=== PATIENT | male | born 1945 | race Caucasian/White ===

== ENCOUNTER 2017-11-28 09:06 | Day surgery (SDC) | payer MEDICARE ==
[~2017-11-28 09:06] MED LIST: BUPIVACAINE (PF) 0.5% 4.5 ML, HYALURONIDASE, HUMAN RECOMB 150 UNIT, LIDOCAINE 2% (PF) 9... IO ONE; LACTATED RINGERS 1,000 ML IV SCH; MOXIFLOXACIN HCL 0.5% DROPS 3 ML BTL OP ONE; TETRACAINE 0.5% OPHTH (PF) DROPS 4 ML BTL OP ONE; TIMOLOL 0.5% OPHTH DROPS 5 ML BTL OP ONE
[2017-11-28 10:40] VITALS: RESP 16; TEMP 97.9
[2017-11-28] MEDS: CYCLOPENTOLATE 1% OPHTH SOLN 2 ML BTL OP ONE ×2 (10:40→10:43)
[2017-11-28] MEDS ORDERED: LIDOCAINE 1% 20 ML VIAL (10MG/ML) FOR IV START INTRADERMA ONE (10:47)
[2017-11-28] MEDS: PHENYLEPHRINE 2.5% OPHTH DRP 2ML OP NR ×3 (10:49→10:55)
[2017-11-28] MEDS ORDERED: BALANCED SALT IRRIG SOLN COMB2 15 ML IRRIG.SOLN INTRAOCULA ONE ×2 (11:42)
[2017-11-28] MEDS ORDERED: PROPOFOL 10 MG/ML 20 ML VIAL IV ONE (11:42)
[2017-11-28] MEDS ORDERED: BUPIVACAINE (PF) 0.5% 30 ML VIAL ONE (11:48)
[2017-11-28] MEDS ORDERED: EPINEPHrine (PF) 0.3 ML in BALANCED SALT IRRIG SOLN COMB2 500 ML IRRIGATION ONE (12:02)
[2017-11-28] MEDS ORDERED: ACETYLCHOLINE CHLORIDE 10 MG/ML 2 ML KIT INTRAOCULA ONE ×2 (13:02)
[2017-11-28] MEDS ORDERED: FLUORESCEIN STRIPS 1 MG STRIP LEFT EYE ONE (13:04)
--- NOTE | 2017-11-28 13:22 | P.OP ---
Date of Procedure: 11/28/17 Preoperative Diagnosis: IOL dislocation Postoperative Diagnosis: same Procedure(s) Performed: Reyna Sutured IOL Implants: none Anesthesia: regional Surgeon: Ayad Gordillo Estimated Blood Loss (ml): 2 Condition: stable Disposition: same day Indications for Procedure: blurry unstable vision Operative Findings: No complications
[2017-11-28 13:47] VITALS: BP 145/82; PULSE 70
--- NOTE | 2017-11-28 19:35 | OP ---
OPERATIVE REPORT DATE OF SURGERY: 11/28/2017 PREOPERATIVE DIAGNOSIS:: Repositioning of intraocular lens in the left eye. POSTOPERATIVE DIAGNOSIS:: Repositioning of intraocular lens in the left eye. OPERATION:: ESTIMATED BLOOD LOSS:: Less than 5 mL. SPECIMEN TAKEN:: None. SURGEON: Dr. Ayad Gordillo. ANESTHESIA: Regional with retrobulbar. NARRATIVE:: After obtaining the appropriate consent, the patient was brought to the operating room. There, he was placed under cardiac monitoring and induced with propofol for the retrobulbar injection. The retrobulbar injection consisted of 0.5% Marcaine, 1% lidocaine without epinephrine and 150 units of Wydase injected into the retrobulbar space using a 25-gauge Johns needle. A Honan balloon was placed on the eye for approximately 5 minutes. After allowing for sufficient time for regional anesthesia, the patient was then prepped and draped in the usual sterile manner. He was approached from his left temporal side. Three paracenteses were performed. Examination of the loose intra-ocular lens identified the haptic to be approximately at 10 o'clock, 4 o'clock and 2 partial thickness scleral tunnels in those particular positions as per A Reyna-type procedure were created. Additionally, the 3 paracenteses were one at the 10 o'clock and at the 4 o'clock position slightly anterior to the scleral tunnels and an additional paracentesis, the 3rd paracentesis, was performed at 90 degrees away at the 1:30 position. 9-0 Prolene was used to capture the haptic at the 10 o'clock position, first supporting the posterior aspect of the haptic followed by an additional pass with the 9-0 Prolene suture above the haptic. Both needles were passed posterior to the ciliary body and directly through the scleral tissue. After drawing the suture tight and removing the long needles at the end of the suture, a Sinskey or Kuglen hook was used to retrieve the sutures from the scleral pocket. Using standard tying instruments, multiple 3111 ties were tied to secure the Prolene suture within the scleral tunnel. The excess suture was trimmed and retracted nicely within that area. Similarly, needles were passed across the anterior chamber, again capturing the inferotemporal haptic first beneath the haptic and then over the top of the haptic, drawing the inferotemporal haptic tight against the sclera posterior to the ciliary body and in a similar fashion, needles were removed and the suture was retrieved from the scleral pocket with Kuglen or Sinskey hooks. The suture was knotted in a similar 3111 fashion and the excess suture was trimmed and retracted within the pocket. Some gentle adjustment of the intra-ocular lens to better center it within the pupil of the eye was performed using a Sinskey hook. The eye was brought to normal intraocular pressure through the paracentesis port with a balanced salt solution and Miochol was used to bring about pupillary miosis to ensure proper water-tight seal. All 3 paracenteses were closed with ReSure and the scleral pocket, which had been created at the 10 o'clock position, appeared as if it was gaping a bit and was closed with a single 10-0 nylon suture in an X fashion. At the end of the case, 2 drops of 0.5% timolol followed by 2 drops of moxifloxacin were used and the eye was lightly patched and shielded in the usual manner. There were no complications from the procedure. He tolerated the procedure well, was returned to outpatient recovery in good condition. MMODL / IJN: [id number] /
== END 2017-11-28 14:00 | disposition home or self-care (01) ==
LOC: OR 09:06
PROVIDERS: ATTEND Ophthalmology
DX: T85.22XA Displacement of intraocular lens, initial encounter (principal); H53.2 Diplopia; H53.021 Refractive amblyopia, right eye; K21.9 Gastro-esophageal reflux disease without esophagitis; Z79.899 Other long term (current) drug therapy
CPT/HCPCS: 66682; J3470; J2001; J0171; J2704

== ENCOUNTER 2019-06-17 10:40 | Inpatient (IN) | payer MEDICARE ==
[2019-06-17] MEDS ORDERED: ASPIRIN 81 MG PO STA (10:57)
[2019-06-17] MEDS ORDERED: NITROGLYCERIN SL TABS 0.4 MG TAB SUBLINGUAL STA ×3 (10:57)
--- NOTE | 2019-06-17 11:01 | ED ---
General Adult HPI - General Chief complaint: Chest Pain Stated complaint: chest pain Time Seen by Provider: 06/17/19 10:50 Source: patient, RN notes reviewed Mode of arrival: wheelchair Limitations: no limitations - History of Present Illness Initial comments: Patient is a pleasant 74-year-old male presenting to the emergency Department with chest discomfort. Onset of symptoms was 5 or 6 days ago. Discomfort did start in his abdomen however now is in his chest. Discomfort did feel like indigestion however now feels more sharp. No radiation. Discomfort is lower sternal region. No associated dyspnea or diaphoresis. Patient has been nauseated and does vomit a couple of times a day, usually with eating. Patient has had decreased appetite and decreased oral intake. - Related Data Home Medications Medication Instructions Recorded Confirmed Ranitidine HCl [Zantac] 150 mg PO QAM 07/24/16 06/17/19 Allergies Allergy/AdvReac Type Severity Reaction Status Date / Time venom-honey bee Allergy Swelling Verified 06/17/19 10:50 [bee venom (honey bee)] Review of Systems ROS Statement: Those systems with pertinent positive or pertinent negative responses have been documented in the HPI. ROS Other: All systems not noted in ROS Statement are negative. Constitutional: Denies: fever Eyes: Denies: eye pain ENT: Denies: ear pain Respiratory: Denies: cough, dyspnea Cardiovascular: Reports: chest pain Endocrine: Denies: fatigue Gastrointestinal: Reports: as per HPI, nausea, vomiting Genitourinary: Denies: dysuria Musculoskeletal: Denies: back pain Skin: Denies: rash Neurological: Denies: weakness Past Medical History Past Medical History: GERD/Reflux History of Any Multi-Drug Resistant Organisms: None Reported Past Surgical History: Appendectomy, Hernia Repair Additional Past Surgical History / Comment(s): LEFT CATARACT/LENS SURGERY. RIGHT CATARACT AND LENS. Past Anesthesia/Blood Transfusion Reactions: No Reported Reaction Past Psychological History: No Psychological Hx Reported Smoking Status: Never smoker Past Alcohol Use History: Occasional Past Drug Use History: None Reported - Past Family History Brother(s) Family Medical History: Cancer Additional Family Medical History / Comment(s): KIDNEY AND BRAIN CANCER General Exam Limitations: no limitations General appearance: alert, in no apparent distress Head exam: Present: atraumatic Eye exam: Present: normal appearance Neck exam: Present: normal inspection Respiratory exam: Present: normal lung sounds bilaterally. Absent: chest wall tenderness Cardiovascular Exam: Present: regular rate, normal rhythm Expanded Peripheral pulses: 2+: Radial (R), Radial (L), Dorsalis Pedis (R), Dorsalis Pedis (L) GI/Abdominal exam: Present: soft, tenderness (Mild epigastric tenderness to palpation). Absent: distended, guarding, rebound, rigid, pulsatile mass Extremities exam: Present: normal inspection. Absent: pedal edema, calf tenderness Neurological exam: Present: alert Psychiatric exam: Present: normal affect, normal mood Skin exam: Present: normal color Course Vital Signs 06/17/19 06/17/19 10:42 11:08 Temperature 97.8 F Pulse Rate 90 89 Respiratory 18 16 Rate Blood Pressure 170/100 163/94 O2 Sat by Pulse 99 98 Oximetry EKG Findings - EKG Comments: EKG Findings:: Normal sinus rhythm at 80. MT 152. QRS 84. QT 338. QTC 39. Normal axis. Normal QRS. No acute ST change. Medical Decision Making - Medical Decision Making Patient reevaluated and unchanged despite nitroglycerin and Pepcid. Patient updated on results and plan. Dr. Noonan has been paged for admission for hospital call. - Lab Data Result diagrams: 06/17/19 11:00 06/17/19 11:00 Lab Results 06/17/19 06/17/19 06/17/19 Range/Units 11:00 11:00 11:00 WBC 13.6 H (3.8-10.6) k/uL RBC 5.81 (4.30-5.90) m/uL Hgb 16.4 (13.0-17.5) gm/dL Hct 47.7 (39.0-53.0) % MCV 82.2 (80.0-100.0) fL MCH 28.3 (25.0-35.0) pg MCHC 34.4 (31.0-37.0) g/dL RDW 15.1 (11.5-15.5) % Plt Count 262 (150-450) k/uL Neutrophils % 78 % Lymphocytes % 12 % Monocytes % 7 % Eosinophils % 1 % Basophils % 1 % Neutrophils # 10.6 H (1.3-7.7) k/uL Lymphocytes # 1.7 (1.0-4.8) k/uL Monocytes # 0.9 (0-1.0) k/uL Eosinophils # 0.1 (0-0.7) k/uL Basophils # 0.1 (0-0.2) k/uL PT 9.6 (9.0-12.0) sec INR 0.9 (<1.2) APTT 23.0 (22.0-30.0) sec Sodium 136 L (137-145) mmol/L Potassium 4.8 (3.5-5.1) mmol/L Chloride 96 L (98-107) mmol/L Carbon Dioxide 30 (22-30) mmol/L Anion Gap 10 mmol/L BUN 20 (9-20) mg/dL Creatinine 0.92 (0.66-1.25) mg/dL Est GFR (CKD-EPI)AfAm >90 (>60 ml/min/1.73 sqM) Est GFR (CKD-EPI)NonAf 82 (>60 ml/min/1.73 sqM) Glucose 116 H (74-99) mg/dL Calcium 10.7 H (8.4-10.2) mg/dL Magnesium 1.9 (1.6-2.3) mg/dL Total Bilirubin 0.4 (0.2-1.3) mg/dL AST 28 (17-59) U/L ALT 38 (21-72) U/L Alkaline Phosphatase 74 (38-126) U/L Troponin I (0.000-0.034) ng/mL Total Protein 7.9 (6.3-8.2) g/dL Albumin 4.6 (3.5-5.0) g/dL Amylase 91 (30-110) U/L Lipase 304 H (23-300) U/L 06/17/19 Range/Units 11:00 WBC (3.8-10.6) k/uL RBC (4.30-5.90) m/uL Hgb (13.0-17.5) gm/dL Hct (39.0-53.0) % MCV (80.0-100.0) fL MCH (25.0-35.0) pg MCHC (31.0-37.0) g/dL RDW (11.5-15.5) % Plt Count (150-450) k/uL Neutrophils % % Lymphocytes % % Monocytes % % Eosinophils % % Basophils % % Neutrophils # (1.3-7.7) k/uL Lymphocytes # (1.0-4.8) k/uL Monocytes # (0-1.0) k/uL Eosinophils # (0-0.7) k/uL Basophils # (0-0.2) k/uL PT (9.0-12.0) sec INR (<1.2) APTT (22.0-30.0) sec Sodium (137-145) mmol/L Potassium (3.5-5.1) mmol/L Chloride (98-107) mmol/L Carbon Dioxide (22-30) mmol/L Anion Gap mmol/L BUN (9-20) mg/dL Creatinine (0.66-1.25) mg/dL Est GFR (CKD-EPI)AfAm (>60 ml/min/1.73 sqM) Est GFR (CKD-EPI)NonAf (>60 ml/min/1.73 sqM) Glucose (74-99) mg/dL Calcium (8.4-10.2) mg/dL Magnesium (1.6-2.3) mg/dL Total Bilirubin (0.2-1.3) mg/dL AST (17-59) U/L ALT (21-72) U/L Alkaline Phosphatase (38-126) U/L Troponin I <0.012 (0.000-0.034) ng/mL Total Protein (6.3-8.2) g/dL Albumin (3.5-5.0) g/dL Amylase (30-110) U/L Lipase (23-300) U/L - Radiology Data Radiology results: image reviewed (Chest and abdomen x-ray revealed no acute process) Disposition Clinical Impression: Chest pain Disposition: ADMITTED IP TO THIS HOSP Is patient prescribed a controlled substance at d/c from ED?: No Referrals: None,Stated [Primary Care Provider] - 1-2 days Decision Time: 12:00
[2019-06-17] MEDS ORDERED: FAMOTIDINE 20 MG/2 ML VIAL IV STA (11:13)
[2019-06-17 11:20] LABS: Basophils # (A) 0.1 k/uL (0-0.2); Basophils % (A) 1 %; Eosinophils # (A) 0.1 k/uL (0-0.7); Eosinophils % (A) 1 %; HCT 47.7 % (39.0-53.0); HGB 16.4 gm/dL (13.0-17.5); Lymphocytes # (A) 1.7 k/uL (1.0-4.8); Lymphocytes % (A) 12 %; MCH 28.3 pg (25.0-35.0); MCHC 34.4 g/dL (31.0-37.0); MCV 82.2 fL (80.0-100.0); Mean Platelet Volume 7.1; Monocytes # (A) 0.9 k/uL (0-1.0); Monocytes % (A) 7 %; Neutrophils # (A) 10.6 k/uL (1.3-7.7); Neutrophils % (A) 78 %; Platelet Count 262 k/uL (150-450); RBC 5.81 m/uL (4.30-5.90); RDW 15.1 % (11.5-15.5); WBC 13.6 k/uL (3.8-10.6)
[2019-06-17 11:28] LABS: ALT 38 U/L (21-72); AST 28 U/L (17-59); African American GFR (CKD) >90 (>60 ml/min/1.73 sqM); Albumin 4.6 g/dL (3.5-5.0); Alkaline Phosphatase 74 U/L (38-126); Amylase 91 U/L (30-110); Anion Gap 10 mmol/L; Blood Urea Nitrogen 20 mg/dL (9-20); Calcium 10.7 mg/dL (8.4-10.2); Carbon Dioxide 30 mmol/L (22-30); Chloride 96 mmol/L (98-107); Glucose 116 mg/dL (74-99); Magnesium 1.9 mg/dL (1.6-2.3); Potassium 4.8 mmol/L (3.5-5.1); Sodium 136 mmol/L (137-145); Total Bilirubin 0.4 mg/dL (0.2-1.3); Total Protein 7.9 g/dL (6.3-8.2)
--- NOTE | 2019-06-17 11:29 | XR ---
EXAMINATION TYPE: XR chest 2V DATE OF EXAM: 06/17/2019 COMPARISON: NONE HISTORY: Chest and abdominal pain TECHNIQUE: Frontal and lateral views of the chest are obtained. FINDINGS: There is no focal air space opacity, pleural effusion, or pneumothorax seen. The cardiac silhouette size is within normal limits. The osseous structures are intact. Minimal degenerative ch anges of the spine. IMPRESSION: No acute cardiopulmonary process.
--- NOTE | 2019-06-17 11:30 | XR ---
EXAMINATION TYPE: XR abdomen 1V DATE OF EXAM: 06/17/2019 CLINICAL HISTORY: Chest and abdominal pain TECHNIQUE: Upright frontal view of the abdomen was obtained. COMPARISON: None. FINDINGS: Mild degree colonic fecal stasis is seen in the right hemicolon. No dilated large or small bowel. No pneumoperitoneum. No abnormal calcifications in the abdomen. Phleboliths are seen within th e pelvis. Moderate degenerative changes of the spine. Lung bases are well aerated. IMPRESSION: Nonobstructive bowel gas pattern.
[2019-06-17 11:31] LABS: INR 0.9 (<1.2); Prothrombin Time 9.6 sec (9.0-12.0)
[2019-06-17] MEDS ORDERED: NITROGLYCERIN SL TABS 0.4 MG TAB SUBLINGUAL PRN (12:00)
[2019-06-17] MEDS ORDERED: MORPHINE SULFATE 4 MG/ML SYRINGE IV STA (12:07)
[2019-06-17] MEDS ORDERED: PANTOPRAZOLE 40 MG/10 ML VIAL IVP SCH (12:15)
[2019-06-17] MEDS: NITROGLYCERIN OINT 1 INCH/GM PACKET TOPICAL SCH ×2 (12:20→14:15)
[2019-06-17] MEDS: SODIUM CHLORIDE 0.9% 1,000 ML IV SCH (12:23)
[2019-06-17] MEDS ORDERED: HYDROmorphone 0.5 MG/0.5 ML SYRINGE IVP PRN (12:48)
[2019-06-17] MEDS ORDERED: HYDROcodone/APAP 5-325MG 1 EACH TAB PO PRN (12:48)
[2019-06-17] MEDS ORDERED: IOPAMIDOL-300 CONTRAST 30 ML VIAL (ORAL USE) PO PRN (14:54)
[2019-06-17] MEDS ORDERED: ACETAMINOPHEN TAB 500 MG TAB PO PRN (14:55)
[2019-06-17] MEDS ORDERED: ALPRAZolam 0.25 MG TAB PO PRN (14:55)
[2019-06-17] MEDS: HEPARIN SODIUM,PORCINE 5,000 UNIT/ML 1 ML VIAL SQ SCH ×2 (15:19→21:50)
--- NOTE | 2019-06-17 15:22 | US ---
EXAMINATION TYPE: US gallbladder DATE OF EXAM: 06/17/2019 COMPARISON: NONE CLINICAL HISTORY: Abdominal pain EXAM MEASUREMENTS: Liver Length: 11.5 cm Gallbladder Wall: 0.4 cm CBD: 0.3 cm Right Kidney: 10.9 x 5.0 x 4.8 cm Severe overlying bowel gas. Pancreas: Obscured by bowel gas Liver: wnl, partially obscured by bowel gas Gallbladder: patient states that he hasn't eaten in two days, gallbladder appears small and contract ed CBD: wnl Right Kidney: lobular contour IMPRESSION: Contracted gallbladder calculi appearance of gallbladder wall thickening circumferentiall y. No common bile duct dilatation or pericholecystic fluid. HIDA scan could be considered for further evaluation.
--- NOTE | 2019-06-17 15:23 | US ---
EXAMINATION TYPE: US duplex aorta DATE OF EXAM: 06/17/2019 COMPARISON: NONE CLINICAL HISTORY: Evaluate aorta. EXAM MEASUREMENTS: Abdominal Aorta: Proximal: obscured by overlying bowel gas Mid: 1.8 Distal: 1.2 Bifurcation: Lt.1.1 Rt. 1.0 Extensive midline bowel gas, technically difficult study. Aorta not visualized in its entirety. IMPRESSION: Proximal aorta is obscured by bowel gas. The visualized portions of the abdominal aorta d [facility] no sonographic evidence of abdominal aortic aneurysm.
[2019-06-17 16:26] LABS: Appearance,Urine Clear (Clear); Bilirubin,Urine Negative (Negative); Blood,Urine Negative (Negative); Color,Urine Light Yellow; Glucose,Urine (UA) Negative (Negative); Ketones,Urine Negative (Negative); Leukocyte Esterase,Urine Negative (Negative); Nitrite,Urine Negative (Negative); Protein,Urine Negative (Negative); Specific Gravity,Urine 1.005 (1.001-1.035); Urobilinogen,Urine <2.0 mg/dL (<2.0)
[2019-06-17 16:32] LABS: ALT 32 U/L (21-72); AST 28 U/L (17-59); African American GFR (CKD) >90 (>60 ml/min/1.73 sqM); Albumin 4.6 g/dL (3.5-5.0); Alkaline Phosphatase 79 U/L (38-126); Amylase 84 U/L (30-110); Anion Gap 12 mmol/L; Blood Urea Nitrogen 17 mg/dL (9-20); Calcium 10.7 mg/dL (8.4-10.2); Carbon Dioxide 26 mmol/L (22-30); Chloride 99 mmol/L (98-107); Glucose 105 mg/dL (74-99); Potassium 4.6 mmol/L (3.5-5.1); Sodium 137 mmol/L (137-145); Total Bilirubin 0.4 mg/dL (0.2-1.3); Total Protein 7.9 g/dL (6.3-8.2)
--- NOTE | 2019-06-17 17:24 | CT ---
EXAMINATION TYPE: CT abdomen pelvis wo IV con, with oral contrast DATE OF EXAM: 06/17/2019 COMPARISON: None HISTORY: Epigastric abdominal pain. CT DLP: 540.6 mGycm Automated exposure control for dose reduction was used. TECHNIQUE: Helical acquisition of images was performed from the lung bases through the pelvis. FINDINGS: Within the limitations of noncontrast CT, the following observations are made. LUNG BASES: No acute findings. LIVER/GB: No significant abnormality is appreciated. PANCREAS: No significant abnormality is seen. SPLEEN: No significant abnormality is seen. ADRENALS: No significant abnormality is seen. KIDNEYS: No significant abnormality is seen. FREE AIR: No free air is visualized RETROPERITONEAL ADENOPATHY: None visualized REPRODUCTIVE ORGANS: No significant abnormality is seen URINARY BLADDER: No significant abnormality is seen. PELVIC ADENOPATHY: None visualized. OSSEOUS STRUCTURES: No significant abnormality is seen. BOWEL: The stomach is mildly distended and there is circumferential mural thickening and indistinctn ess of the gastric antrum and the proximal duodenum, consistent with peptic ulcer disease. There is n o pneumatosis or pneumoperitoneum. Remainder of the bowel is unremarkable as seen. Appendix is negati ve. IMPRESSION: FINDINGS CONSISTENT WITH PEPTIC ULCER DISEASE.
[2019-06-17] MEDS: LEVOFLOXACIN 500MG-D5W PMX 500 MG in DEXTROSE/WATER 1 100ML.BAG IVPB SCH (17:52)
--- NOTE | 2019-06-17 17:54 | HP ---
HISTORY AND PHYSICAL DATE OF SERVICE: 06/17/2019 CHIEF COMPLAINT: Abdominal epigastric pain. HISTORY OF PRESENT ILLNESS: This 74-year-old gentleman with a past medical history of GERD, appendectomy, hernia repair, not being followed by any primary physician in the outpatient setting, is complaining of abdominal pain which started in the lower part of the abdomen and went upwards into the right upper quadrant and epigastrium. The patient came to [facility] and was admitted for further evaluation and treatment. The amylase is slightly elevated. The discomfort felt like indigestion, according to him, and the patient was admitted for further evaluation and treatment. The initial EKG showed no acute changes. Abdominal x-ray was unremarkable. The patient also underwent a gallbladder ultrasound which showed contracted gallbladder calculi, appearance of gallbladder with wall thickening circumferentially. The patient was admitted for further evaluation and treatment. There is no history of any fever, rigor or chills. No history of headache, loss of consciousness, seizures. PAST MEDICAL HISTORY: 1. GERD. 2. Appendectomy. 3. Hernia repair. HOME MEDICATION: Ranitidine 150 mg each morning. ALLERGIES: VENOM OF THE HONEY BEE. FAMILY HISTORY: Kidney and brain cancer. SOCIAL HISTORY: No history of smoking. No history of alcohol intake. REVIEW OF SYSTEMS: ENT: Diminished hearing. Diminished vision. CARDIOVASCULAR SYSTEM: As mentioned earlier. RESPIRATORY SYSTEM: As mentioned earlier. GI: As mentioned earlier. : No dysuria or retention. NERVOUS SYSTEM: No numbness, weakness. ALLERGY/IMMUNOLOGY: No asthma, hayfever. MUSCULOSKELETAL: As mentioned earlier. HEMATOLOGY/ONCOLOGY: No history of anemia. ENDOCRINE: No history of diabetes, hypothyroidism. CONSTITUTIONAL: As mentioned earlier. DERMATOLOGY: Negative. RHEUMATOLOGY: Negative. PSYCHIATRY: As mentioned earlier. PHYSICAL EXAMINATION: Patient alert and oriented x3. Pulse 75, blood pressure 126/70, respiration 18, temperature 98.1, pulse ox 96% on 2 L. HEENT: Conjunctivae normal. NECK: No jugular venous distention. CARDIOVASCULAR SYSTEM: S1, S2 muffled. RESPIRATORY SYSTEM: Breath sounds diminished at the bases. No rhonchi. No crackles. ABDOMEN: Soft. Mildly obese. Otherwise, mild diffuse tenderness present in the epigastrium as well as right upper quadrant. No guarding. No rigidity. No rebound tenderness. LEGS: No edema. No swelling. NERVOUS SYSTEM: Higher functions as mentioned earlier. Moves all 4 limbs. No focal motor or sensory deficit. LYMPHATICS: No lymph node palpable in neck, axillae or groin. SKIN: No ulcer, rash, bleeding. JOINTS: No active deforming arthropathy. LABS: WBC 13.6, hemoglobin 16.4. Sodium 136. Glucose 116. ASSESSMENT: 1. Epigastric and abdominal pain, possibly cholecystitis, acute on chronic, with cholelithiasis. 2. Elevated lipase with possible mild pancreatitis. 3. Increased calcium with hypercalcemia with possible dehydration and increased white count. 4. Gastroesophageal reflux disease. 5. Appendectomy. 6. History of hernia repair. RECOMMENDATIONS AND DISCUSSION: In this 74-year-old gentleman who presented with multiple complex medical issues, we will monitor the patient closely, continue the current medications, continue symptomatic treatment. I recommend surgical evaluation, gastroenterology consultation. Cardiology also is consulted. CT scan of the abdomen and pelvis. I would also recommend a course of empiric antibiotics. Prognosis is guarded because of multiple complex medical issues. Further recommendations to follow. I would also recommend that the patient follow up with a primary physician closely after discharge. MMODL / IJN: [id number] /
[2019-06-17] MEDS: PANTOPRAZOLE 40 MG/10 ML VIAL IVP SCH (21:50)
[2019-06-18] MEDS: NITROGLYCERIN OINT 1 INCH/GM PACKET TOPICAL SCH ×4 (02:34→20:41)
[2019-06-18 07:44] LABS: Basophils # (A) 0.1 k/uL (0-0.2); Basophils % (A) 1 %; Eosinophils # (A) 0.1 k/uL (0-0.7); Eosinophils % (A) 1 %; HGB 15.3 gm/dL (13.0-17.5); Lymphocytes # (A) 1.8 k/uL (1.0-4.8); Lymphocytes % (A) 18 %; MCH 28.1 pg (25.0-35.0); MCHC 34.1 g/dL (31.0-37.0); MCV 82.5 fL (80.0-100.0); Mean Platelet Volume 7.4; Monocytes # (A) 0.8 k/uL (0-1.0); Monocytes % (A) 8 %; Neutrophils # (A) 7.2 k/uL (1.3-7.7); Neutrophils % (A) 70 %; Platelet Count 243 k/uL (150-450); RBC 5.45 m/uL (4.30-5.90); RDW 15.4 % (11.5-15.5); WBC 10.2 k/uL (3.8-10.6)
--- NOTE | 2019-06-18 07:53 | P.CRDCN ---
History of Present Illness Consult date: 06/18/19 Chief complaint: Epigastric discomfort History of present illness: This is a pleasant 74-year-old gentleman with no significant past medical hist ory of coronary artery disease, diabetes, hypertension, dyslipidemia, presented to the emergency room complaining of abdominal/epigastric discomfort. He was in his usual state of health until about 3 days ago when he started experiencing discomfort mainly in the mid abdomen was radiation to the epigastric area, he describes the discomfort as indigestion, without any associated symptoms of fever or chills but he stated that it was associated with nausea and vomiting. No symptoms of chest pain or chest discomfort. No symptoms of heart racing or fluttering OR dizziness, or syncope. The EKG showed sinus rhythm without any significant ST or T-wave abnormalities. 3 sets of cardiac enzymes were checked and came in to be unremarkable. The chest x-ray showed no acute abnormalities. The patient underwent an ultrasound of the gallbladder which revealed gallbladder stone was gallbladder contraction. 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 No history of congestive heart failure or cardiac arrhythmia. Currently the patient is pain f ree. Past Medical History Past Medical History: GERD/Reflux History of Any Multi-Drug Resistant Organisms: None Reported Past Surgical History: Appendectomy, Hernia Repair Additional Past Surgical History / Comment(s): LEFT CATARACT/LENS SURGERY. RIGHT CATARACT AND LENS. Past Anesthesia/Blood Transfusion Reactions: No Reported Reaction Past Psychological History: No Psychological Hx Reported Smoking Status: Never smoker Past Alcohol Use History: Occasional Past Drug Use History: None Reported - Past Family History Brother(s) Family Medical History: Cancer Additional Family Medical History / Comment(s): KIDNEY AND BRAIN CANCER Medications and Allergies Home Medications Medication Instructions Recorded Confirmed Type Ranitidine HCl [Zantac] 150 mg PO QAM 07/24/16 06/17/19 History Allergies Allergy/AdvReac Type Severity Reaction Status Date / Time venom-honey bee Allergy Swelling Verified 06/17/19 10:50 [bee venom (honey bee)] Physical Exam Vitals: Vital Signs Temp Pulse Pulse Resp BP BP BP 06/18/19 07:10 97.9 F 79 18 109/64 06/18/19 04:00 97.8 F 77 18 116/62 06/18/19 00:00 76 18 06/17/19 23:45 97.3 F L 76 18 115/57 06/17/19 20:00 98.2 F 82 18 113/61 06/17/19 16:00 18 06/17/19 14:22 98.1 F 75 18 126/71 06/17/19 12:00 78 16 134/77 06/17/19 11:30 80 16 133/80 06/17/19 11:08 89 16 163/94 06/17/19 11:00 87 16 162/97 06/17/19 10:54 92 16 06/17/19 10:42 97.8 F 90 18 170/100 Pulse Ox 06/18/19 07:10 94 L 06/18/19 04:00 98 06/18/19 00:00 06/17/19 23:45 95 06/17/19 20:00 92 L 06/17/19 16:00 06/17/19 14:22 96 06/17/19 12:00 06/17/19 11:30 06/17/19 11:08 98 06/17/19 11:00 06/17/19 10:54 06/17/19 10:42 99 Intake and Output 06/17/19 06/18/19 06/18/19 22:59 06:59 14:59 Other: Voiding Method Toilet Toilet # Voids 1 1 - Constitutional General appearance: no acute distress - Respiratory Respiratory: bilateral: CTA - Cardiovascular Rhythm: regular Heart sounds: normal: S1, S2 Results 06/18/19 06:42 06/17/19 16:03 Cardiac Enzymes 06/17/19 06/17/19 06/17/19 Range/Units 11:00 11:00 16:03 AST 28 (17-59) U/L Troponin I <0.012 <0.012 (0.000-0.034) ng/mL 06/17/19 06/17/19 Range/Units 16:03 23:17 AST 28 (17-59) U/L Troponin I <0.012 (0.000-0.034) ng/mL Coagulation 06/17/19 Range/Units 11:00 PT 9.6 (9.0-12.0) sec APTT 23.0 (22.0-30.0) sec CBC 06/17/19 06/18/19 Range/Units 11:00 06:42 WBC 13.6 H 10.2 (3.8-10.6) k/uL RBC 5.81 5.45 (4.30-5.90) m/uL Hgb 16.4 15.3 (13.0-17.5) gm/dL Hct 47.7 45.0 (39.0-53.0) % Plt Count 262 243 (150-450) k/uL Comprehensive Metabolic Panel 06/17/19 06/17/19 Range/Units 11:00 16:03 Sodium 136 L 137 (137-145) mmol/L Potassium 4.8 4.6 (3.5-5.1) mmol/L Chloride 96 L 99 (98-107) mmol/L Carbon Dioxide 30 26 (22-30) mmol/L BUN 20 17 (9-20) mg/dL Creatinine 0.92 0.89 (0.66-1.25) mg/dL Glucose 116 H 105 H (74-99) mg/dL Calcium 10.7 H 10.7 H (8.4-10.2) mg/dL AST 28 28 (17-59) U/L ALT 38 32 (21-72) U/L Alkaline Phosphatase 74 79 (38-126) U/L Total Protein 7.9 7.9 (6.3-8.2) g/dL Albumin 4.6 4.6 (3.5-5.0) g/dL Current Medications Generic Name Dose Route Start Last Admin Trade Name Freq PRN Reason Stop Dose Admin Acetaminophen 500 mg 06/17/19 14:55 Tylenol Tab PO Q6HR PRN Fever and/ or Pain Hydrocodone Bitart/Acetaminophen 1 each 06/17/19 12:48 [place] 5-325 PO Q6HR PRN Pain Alprazolam 0.25 mg 06/17/19 14:55 Xanax PO TID PRN Anxiety Aspirin 325 mg 06/18/19 09:00 Aspirin PO DAILY TAMELA Heparin Sodium (Porcine) 5,000 unit 06/17/19 15:00 06/17/19 21:50 Heparin SQ 5,000 unit Q12HR TAMELA Administration Hydromorphone HCl 0.5 mg 06/17/19 12:48 Dilaudid IVP Q6HR PRN Severe Pain Sodium Chloride 1,000 mls @ 75 mls/hr 06/17/19 12:00 06/17/19 12:23 Saline 0.9% IV Not Given .[id number] TAMELA Levofloxacin 500 mg/ IV 100 mls @ 100 mls/hr 06/17/19 18:00 06/17/19 17:52 Solution IVPB 100 mls/hr Q24H TAMELA Administration Iopamidol 30 ml 06/17/19 14:54 Isovue-300 30 Ml (For Oral Use) PO 06/18/19 14:[address] Scan Nitroglycerin 0.4 mg 06/17/19 12:00 Nitrostat SUBLINGUAL Q5M PRN Chest Pain Nitroglycerin 1 inch 06/17/19 12:00 06/18/19 02:34 Nitro-Bid Oint TOPICAL Not Given Q6HR TAMELA Pantoprazole Sodium 40 mg 06/17/19 21:00 06/17/19 21:50 Protonix IVP 40 mg BID TAMELA Administration Intake and Output 06/17/19 06/18/19 06/18/19 22:59 06:59 14:59 Other: Voiding Method Toilet Toilet # Voids 1 1 06/18/19 06:42 06/17/19 16:03 Assessment and Plan Assessment: Assessment #1 abdominal/epigastric discomfort likely related to gallbladder disease Plan #1 the patient was ruled out for acute coronary event #2 his symptoms are mainly of gastro-intestinal etiology #3 probably stress test as an outpatient. Thank you for allowing us participate in his care
[2019-06-18 08:00] LABS: Calcium 9.3 mg/dL (8.4-10.2); Potassium 5.2 mmol/L (3.5-5.1)
[2019-06-18] MEDS ORDERED: FAMOTIDINE 20 MG TAB PO SCH (09:00)
--- NOTE | 2019-06-18 09:41 | P.GSCN ---
<Miriam Tsang - Last Filed: 06/18/19 09:35> History of Present Illness Consult date: 06/18/19 Reason for Consult: Cholecystitis Requesting physician: Logan Noonan History of present illness: CHIEF COMPLAINT: Abdominal pain HISTORY OF PRESENT ILLNESS: 74 year old male who presented to the ER with a chief complaint of chest pain and abdominal pain. Patient reports the pain is mostly in the epigastric region and radiates to his back. He reports this pain has been intermittent for the past 7 days. He reports nausea and vomiting and has been unable to keep liquids down. Denies diarrhea or constipation. Denies fever or chills. Denies history of known gallbladder disease. Patient states he received pain medication last night and has been pain free since that time. PAST MEDICAL HISTORY: See list. PAST SURGICAL HISTORY: See list. SOCIAL HISTORY: No illicit drug use. REVIEW OF SYSTEMS: CONSTITUTIONAL: Denies fever or chills. HEENT: Denies blurred vision, vision changes, or eye pain. Denies hemoptysis CARDIOVASCULAR: Reports chest pain prior to hospitalization. RESPIRATORY: No shortness of breath. GASTROINTESTINAL: Refer to HPI for pertinent findings HEMATOLOGIC: Denies bleeding disorders. GENITOURINARY: Denies any blood in urine. SKIN: Denies pruitis. Denies rash. PHYSICAL EXAM: VITAL SIGNS: Reviewed. GENERAL: Well-developed in no acute distress. HEENT: No sclera icterus. Extraocular movements grossly intact. Moist buccal mucosa. Head is atraumatic, normocephalic. ABDOMEN: Soft. Nondistended. Nontender with palpation. Positive bowel sounds. NEUROLOGIC: Alert and oriented. Cranial nerves II through XII grossly intact. LABORATORY DATA: Laboratory data upon admission reveals white count 13.6. Hemoglobin 16.4. Total bilirubin 0.4. AST 28. ALT 38. Amylase 91. Lipase 304. IMAGIN. Ultrasound gallbladder: Contracted gallbladder calculi appearance of gallbladder wall thickening circumferentially. No common bile duct dilation or pericholecystic fluid. 2. Stomach is mildly distended and there is circumferential mural thickening of gastric antrum and proximal duodenum. Consistent with peptic ulcer disease. ASSESSMENT: 1. Epigastric pain 2. Chronic cholecystitis 3. Abnormal CT scan revealing mildly distended stomach and circumferential mural thickening of the gastric antrum and proximal duodenum, suspected peptic ulcer disease PLAN: 1. NPO 2. Continue IV fluids 3. Continue Protonix 4. Patient to undergo laparoscopic cholecystectomy with Dr. Damon today 5. GI on consult and also following. Recommending EGD to evaluate for peptic ulcer disease Nurse practitioner note has been reviewed by physician. Signing provider agrees with the documented findings, assessment, and plan of care. Past Medical History Past Medical History: GERD/Reflux History of Any Multi-Drug Resistant Organisms: None Reported Past Surgical History: Appendectomy, Hernia Repair Additional Past Surgical History / Comment(s): LEFT CATARACT/LENS SURGERY. RIGHT CATARACT AND LENS. Past Anesthesia/Blood Transfusion Reactions: No Reported Reaction Past Psychological History: No Psychological Hx Reported Smoking Status: Never smoker Past Alcohol Use History: Occasional Past Drug Use History: None Reported - Past Family History Brother(s) Family Medical History: Cancer Additional Family Medical History / Comment(s): KIDNEY AND BRAIN CANCER Medications and Allergies Home Medications Medication Instructions Recorded Confirmed Type Ranitidine HCl [Zantac] 150 mg PO QAM 07/24/16 06/17/19 History Allergies Allergy/AdvReac Type Severity Reaction Status Date / Time venom-honey bee Allergy Swelling Verified 06/17/19 10:50 [bee venom (honey bee)] Surgical - Exam Vital Signs Temp Pulse Resp BP Pulse Ox 97.8 F 90 18 170/100 99 06/17/19 10:42 06/17/19 10:42 06/17/19 10:42 06/17/19 10:42 06/17/19 10:42 Results - Labs 06/18/19 06:42 06/18/19 06:42 Abnormal Lab Results - Last 24 Hours (Table) 06/17/19 06/17/19 06/17/19 Range/Units 11:00 11:00 16:03 WBC 13.6 H (3.8-10.6) k/uL Neutrophils # 10.6 H (1.3-7.7) k/uL Sodium 136 L (137-145) mmol/L Potassium (3.5-5.1) mmol/L Chloride 96 L (98-107) mmol/L Glucose 116 H 105 H (74-99) mg/dL Calcium 10.7 H 10.7 H (8.4-10.2) mg/dL LDL Cholesterol, Calc (0-99) mg/dL HDL Cholesterol (40-60) mg/dL Lipase 304 H (23-300) U/L 06/18/19 Range/Units 06:42 WBC (3.8-10.6) k/uL Neutrophils # (1.3-7.7) k/uL Sodium 135 L (137-145) mmol/L Potassium 5.2 H (3.5-5.1) mmol/L Chloride (98-107) mmol/L Glucose (74-99) mg/dL Calcium (8.4-10.2) mg/dL LDL Cholesterol, Calc 101 H (0-99) mg/dL HDL Cholesterol 38 L (40-60) mg/dL Lipase (23-300) U/L Diabetes panel 06/17/19 06/17/19 06/18/19 Range/Units 11:00 16:03 06:42 Sodium 136 L 137 135 L (137-145) mmol/L Potassium 4.8 4.6 5.2 H (3.5-5.1) mmol/L Chloride 96 L 99 100 (98-107) mmol/L Carbon Dioxide 30 26 25 (22-30) mmol/L BUN 20 17 18 (9-20) mg/dL Creatinine 0.92 0.89 1.10 (0.66-1.25) mg/dL Glucose 116 H 105 H 95 (74-99) mg/dL Calcium 10.7 H 10.7 H 9.3 (8.4-10.2) mg/dL AST 28 28 (17-59) U/L ALT 38 32 (21-72) U/L Alkaline Phosphatase 74 79 (38-126) U/L Total Protein 7.9 7.9 (6.3-8.2) g/dL Albumin 4.6 4.6 (3.5-5.0) g/dL Triglycerides 110 (<150) mg/dL HDL Cholesterol 38 L (40-60) mg/dL Calcium panel 06/17/19 06/17/19 06/18/19 Range/Units 11:00 16:03 06:42 Calcium 10.7 H 10.7 H 9.3 (8.4-10.2) mg/dL Albumin 4.6 4.6 (3.5-5.0) g/dL Pituitary panel 06/17/19 06/17/19 06/18/19 Range/Units 11:00 16:03 06:42 Sodium 136 L 137 135 L (137-145) mmol/L Potassium 4.8 4.6 5.2 H (3.5-5.1) mmol/L Chloride 96 L 99 100 (98-107) mmol/L Carbon Dioxide 30 26 25 (22-30) mmol/L BUN 20 17 18 (9-20) mg/dL Creatinine 0.92 0.89 1.10 (0.66-1.25) mg/dL Glucose 116 H 105 H 95 (74-99) mg/dL Calcium 10.7 H 10.7 H 9.3 (8.4-10.2) mg/dL Adrenal panel 06/17/19 06/17/19 06/18/19 Range/Units 11:00 16:03 06:42 Sodium 136 L 137 135 L (137-145) mmol/L Potassium 4.8 4.6 5.2 H (3.5-5.1) mmol/L Chloride 96 L 99 100 (98-107) mmol/L Carbon Dioxide 30 26 25 (22-30) mmol/L BUN 20 17 18 (9-20) mg/dL Creatinine 0.92 0.89 1.10 (0.66-1.25) mg/dL Glucose 116 H 105 H 95 (74-99) mg/dL Calcium 10.7 H 10.7 H 9.3 (8.4-10.2) mg/dL Total Bilirubin 0.4 0.4 (0.2-1.3) mg/dL AST 28 28 (17-59) U/L ALT 38 32 (21-72) U/L Alkaline Phosphatase 74 79 (38-126) U/L Total Protein 7.9 7.9 (6.3-8.2) g/dL Albumin 4.6 4.6 (3.5-5.0) g/dL <Ean Damon - Last Filed: 06/18/19 14:06> Surgical - Exam Vital Signs Temp Pulse Resp BP Pulse Ox 97.8 F 90 18 170/100 99 06/17/19 10:42 06/17/19 10:42 06/17/19 10:42 06/17/19 10:42 06/17/19 10:42 Results - Labs 06/18/19 06:42 06/18/19 06:42 Abnormal Lab Results - Last 24 Hours (Table) 06/17/19 06/18/19 Range/Units 16:03 06:42 Sodium 135 L (137-145) mmol/L Potassium 5.2 H (3.5-5.1) mmol/L Glucose 105 H (74-99) mg/dL Calcium 10.7 H (8.4-10.2) mg/dL LDL Cholesterol, Calc 101 H (0-99) mg/dL HDL Cholesterol 38 L (40-60) mg/dL Diabetes panel 06/17/19 06/18/19 Range/Units 16:03 06:42 Sodium 137 135 L (137-145) mmol/L Potassium 4.6 5.2 H (3.5-5.1) mmol/L Chloride 99 100 (98-107) mmol/L Carbon Dioxide 26 25 (22-30) mmol/L BUN 17 18 (9-20) mg/dL Creatinine 0.89 1.10 (0.66-1.25) mg/dL Glucose 105 H 95 (74-99) mg/dL Calcium 10.7 H 9.3 (8.4-10.2) mg/dL AST 28 (17-59) U/L ALT 32 (21-72) U/L Alkaline Phosphatase 79 (38-126) U/L Total Protein 7.9 (6.3-8.2) g/dL Albumin 4.6 (3.5-5.0) g/dL Triglycerides 110 (<150) mg/dL HDL Cholesterol 38 L (40-60) mg/dL Calcium panel 06/17/19 06/18/19 Range/Units 16:03 06:42 Calcium 10.7 H 9.3 (8.4-10.2) mg/dL Albumin 4.6 (3.5-5.0) g/dL Pituitary panel 06/17/19 06/18/19 Range/Units 16:03 06:42 Sodium 137 135 L (137-145) mmol/L Potassium 4.6 5.2 H (3.5-5.1) mmol/L Chloride 99 100 (98-107) mmol/L Carbon Dioxide 26 25 (22-30) mmol/L BUN 17 18 (9-20) mg/dL Creatinine 0.89 1.10 (0.66-1.25) mg/dL Glucose 105 H 95 (74-99) mg/dL Calcium 10.7 H 9.3 (8.4-10.2) mg/dL Adrenal panel 06/17/19 06/18/19 Range/Units 16:03 06:42 Sodium 137 135 L (137-145) mmol/L Potassium 4.6 5.2 H (3.5-5.1) mmol/L Chloride 99 100 (98-107) mmol/L Carbon Dioxide 26 25 (22-30) mmol/L BUN 17 18 (9-20) mg/dL Creatinine 0.89 1.10 (0.66-1.25) mg/dL Glucose 105 H 95 (74-99) mg/dL Calcium 10.7 H 9.3 (8.4-10.2) mg/dL Total Bilirubin 0.4 (0.2-1.3) mg/dL AST 28 (17-59) U/L ALT 32 (21-72) U/L Alkaline Phosphatase 79 (38-126) U/L Total Protein 7.9 (6.3-8.2) g/dL Albumin 4.6 (3.5-5.0) g/dL Assessment and Plan Plan: Cholelithiasis, cholecystitis. We'll perform laparoscopic cholecystectomy.
[2019-06-18] MEDS: PANTOPRAZOLE 40 MG/10 ML VIAL IVP SCH ×2 (09:42→20:41)
[2019-06-18] MEDS: ASPIRIN 325 MG TAB PO SCH (09:43)
[2019-06-18] MEDS: HEPARIN SODIUM,PORCINE 5,000 UNIT/ML 1 ML VIAL SQ SCH ×2 (09:43→20:41)
--- NOTE | 2019-06-18 12:01 | CONS ---
CONSULTATION DATE OF DICTATION: 06/18/2019 REQUESTING PHYSICIAN: Dr. Noonan. REASON FOR CONSULTATION: Epigastric pain. HISTORY OF PRESENT ILLNESS: The patient is a 74-year-old pleasant white male who came in to the emergency room complaining of severe epigastric pain that started about a week ago. The pain is intense, worse with eating, associated with nausea, vomiting. He denies any recent NSAID use. Has prior history of peptic ulcer disease in the 1970s. He denies any fever, chills, night sweats. Denies any melena or rectal bleeding. Came to the emergency room and he had a CT of the abdomen and pelvis done yesterday that showed thickening of the antrum and possibility of peptic ulcer disease was suggested. He also had an ultrasound of the gallbladder that showed a contracted gallbladder. MMODL / IJN: [id number] /
--- NOTE | 2019-06-18 12:22 | CONS ---
CONSULTATION DATE OF SERVICE: 06/18/2019. REASON FOR CONSULTATION: Epigastric pain. HISTORY OF PRESENT ILLNESS: The patient is a 74-year-old white male with He has history of the last 1 week duration. The pain is mostly in the epigastric area with radiation to the nausea, vomiting. He denies any coffee-grounds emesis. He reports no rectal bleeding or melena. He denies any recent NSAID use. Does have prior history of peptic ulcer disease several years ago. Came to the emergency room and subsequently had a CT of the abdomen and pelvis done that showed circumferential mural thickening in the gastric antrum and proximal duodenum, suspicious for peptic ulcer disease. He also will sign the gallbladder done that showed a contracted gallbladder. No biliary ductal dilation. His labs within normal limits. He is feeling much better this morning. PAST MEDICAL HISTORY: Significant for GERD. PAST SURGICAL HISTORY: Left cataract surgery. No known drug allergies. SOCIAL HISTORY: No smoking. No alcohol use. FAMILY HISTORY: Brother has brain cancer. REVIEW OF SYSTEMS: CARDIOPULMONARY: No chest pain, shortness of breath. GENITOURINARY: No dysuira or hematuria MUSCULOSKELETAL: Unremarkable. SKIN: UNREMARKABLE. ENDOCRINE: Unremarkable. PSYCHIATRIC: Unremarkable. NEUROLOGY: Unremarkable. ENT/VISION: Unremarkable. CONSTITUTIONAL: No recent weight loss. EXTREMITIES: Unremarkable. PHYSICAL EXAMINATION: He appears comfortable. No apparent distress. VITAL SIGNS: Stable. Blood pressure is 112/86, pulse rate 82 per minute and afebrile. HEENT examination unremarkable consulting sclerae anicteric oral cavity no lesions the auscultation. HEART: Regular rate and rhythm. ABDOMEN: Soft. Bowel sounds are positive. Mild tenderness in the epigastric area. EXTREMITIES: No pedal edema. SKIN: No rashes. NEUROLOGIC: Alert and oriented x3. No focal deficits. LABS: Done at the time of admission to the hospital: WBC 13.6, hemoglobin 16.4, platelets normal. Basic metabolic panel is within normal limits. AST, ALT, T bilirubin and alkaline phosphatase are within normal limits. Lipase was 304. Urinalysis was negative. IMPRESSION: This is a patient who presents to the hospital with acute onset of severe epigastric pain that had lasted 1 week duration. Had multiple episodes of nausea, vomiting, and CT of the abdomen showed thickening of the antrum and the duodenum, proximal duodenum suspicious for peptic ulcer disease. Presently on IV Protonix 40 mg twice daily and symptoms have significantly improved. Ultrasound of the gallbladder did not show any biliary ductal dilation. RECOMMENDATIONS: 1. Keep him n.p.o. 2. Proceed with an upper endoscopy. 3. Continue with Protonix 40 mg twice daily. 4. Discussed with the patient the benefits and complications of the procedure and is agreeable to it. Thank you for this consultation. MMODL / IJN: [id number] /
[2019-06-18] MEDS ORDERED: LACTATED RINGERS 1,000 ML IV ONE ×4 (13:04→16:10)
[2019-06-18] MEDS ORDERED: ONDANSETRON 4 MG/2 ML VIAL IVP ONE (13:07)
[2019-06-18] MEDS ORDERED: DEXAMETHASONE SOD PHOSPHATE 10 MG/ML 1 ML VIAL IV ONE (13:07)
--- NOTE | 2019-06-18 13:31 | PN ---
PROGRESS NOTE DATE OF SERVICE: 06/18/2019 This 74-year-old gentleman who was admitted with abdominal pain had features of cholecystitis and the patient had a contracted gallbladder with calculi with cholelithiasis. The patient is scheduled for laparoscopic cholecystectomy. The abdomen and pelvis CAT scan also showed some thickening of the duodenum indicative of peptic ulcer disease. Dr. Laurent is planning EGD also. No chest pain or palpitation. No fever. PHYSICAL EXAMINATION: On exam, alert and oriented x3. Pulse is 84, blood pressure 114/67, respiration 18, temperature 98 degrees, pulse ox 95% on room air. HEENT: Conjunctivae normal. NECK: No jugular venous distention. CARDIOVASCULAR: S1, S2 muffled. RESPIRATORY: Breath sounds diminished at the bases. No rhonchi. No crackles. ABDOMEN is soft. Mild diffuse discomfort on palpation. LEGS: No edema. NERVOUS SYSTEM: No focal deficits. LABS: CBC within normal. Sodium 135, potassium 5.2. ASSESSMENT: 1. Abdominal pain possibly acute on chronic cholecystitis with cholelithiasis. 2. Possible peptic ulcer disease. 3. Elevated lipase, possible mild pancreatitis, present on admission. 4. Increased calcium with hypercalcemia with possible dehydration, present on admission. 5. Increased WBC. 6. Gastroesophageal reflux disease. 7. Appendectomy. 8. History of hernia repair. RECOMMENDATIONS AND DISCUSSION: Recommend to continue current medication, continue with monitoring and symptomatic treatment. Closely follow with multiple consultants including Cardiology, Surgery and Gastroenterology. Guarded prognosis. Further recommendations to follow. MMODL / IJN: [id number] /
[2019-06-18] MEDS ORDERED: LIDOCAINE 1% INJ 10MG/ML (20 ML MDV) ONE (14:23)
[2019-06-18] MEDS ORDERED: MIDAZOLAM 2 MG/2 ML VIAL ONE (14:23)
[2019-06-18] MEDS ORDERED: NEOSTIGMINE 1 MG/ML 10 ML VIAL ONE (14:23)
[2019-06-18] MEDS ORDERED: fentaNYL (PF) 50 MCG/ML 2 ML AMP ONE (14:23)
[2019-06-18] MEDS ORDERED: SUCCINYLCHOLINE CHLORIDE 100 MG/5 ML SYR IV ONE (14:23)
[2019-06-18] MEDS ORDERED: ceFAZolin 1,000 MG VIAL ONE (14:23)
[2019-06-18] MEDS ORDERED: ROCURONIUM BROMIDE 10 MG/ML 10 ML VIAL IV ONE (14:23)
[2019-06-18] MEDS ORDERED: GLYCOPYRROLATE 0.2 MG/ML 2 ML VIAL ONE (14:23)
[2019-06-18] MEDS ORDERED: PROPOFOL 10 MG/ML 20 ML VIAL IV ONE (14:23)
[2019-06-18] MEDS ORDERED: PHENYLEPHRINE-0.9% NACL SYG 1 MG/10 ML SYRINGE ONE (14:23)
[2019-06-18] MEDS ORDERED: SODIUM CHLORIDE 0.9% 50 ML with ceFAZolin 2,000 MG IV ONE ×2 (14:52)
[2019-06-18] MEDS ORDERED: BUPIVACAIN-EPI 0.5%-1:200,000 30 ML VIAL SQ ONE (15:00)
[2019-06-18] MEDS ORDERED: ONDANSETRON 4 MG/2 ML VIAL IVP PRN (15:20)
[2019-06-18] MEDS ORDERED: NALOXONE 0.4 MG/ML 1 ML VIAL IV PRN (15:20)
[2019-06-18] MEDS ORDERED: ENALAPRILAT 1.25 MG/ML 1 ML VIAL IVP ONE (15:38)
[2019-06-18] MEDS: SODIUM CHLORIDE 0.9% 1,000 ML IV SCH (18:25)
[2019-06-18] MEDS: LEVOFLOXACIN 500MG-D5W PMX 500 MG in DEXTROSE/WATER 1 100ML.BAG IVPB SCH (18:39)
[2019-06-19] MEDS: NITROGLYCERIN OINT 1 INCH/GM PACKET TOPICAL SCH ×2 (03:32→07:59)
[2019-06-19] MEDS: SODIUM CHLORIDE 0.9% 1,000 ML IV SCH (03:32)
[2019-06-19 05:19] VITALS: RESP 16
[2019-06-19] MEDS: ASPIRIN 325 MG TAB PO SCH (07:59)
[2019-06-19] MEDS: PANTOPRAZOLE 40 MG/10 ML VIAL IVP SCH (07:59)
[2019-06-19 08:21] LABS: Basophils % (A) 0 %; Eosinophils % (A) 0 %; HCT 43.4 % (39.0-53.0); HGB 14.6 gm/dL (13.0-17.5); Lymphocytes # (A) 1.4 k/uL (1.0-4.8); Lymphocytes % (A) 13 %; MCH 27.7 pg (25.0-35.0); MCHC 33.7 g/dL (31.0-37.0); MCV 82.2 fL (80.0-100.0); Mean Platelet Volume 6.9; Monocytes # (A) 0.8 k/uL (0-1.0); Monocytes % (A) 7 %; Neutrophils # (A) 8.1 k/uL (1.3-7.7); Neutrophils % (A) 77 %; Platelet Count 256 k/uL (150-450); RBC 5.28 m/uL (4.30-5.90); RDW 13.3 % (11.5-15.5); WBC 10.5 k/uL (3.8-10.6)
[2019-06-19 08:33] LABS: Calcium 8.8 mg/dL (8.4-10.2); Potassium 4.2 mmol/L (3.5-5.1)
[2019-06-19] MEDS ORDERED: ENOXAPARIN 40 MG/0.4 ML SYRINGE SQ SCH (09:00)
[2019-06-19 11:53] VITALS: BP 123/62; PULSE 70; TEMP 98
--- NOTE | 2019-06-19 12:58 | P.PN ---
Subjective Progress Note Date: 06/19/19 CHIEF COMPLAINT: Abdominal pain HISTORY OF PRESENT ILLNESS: Patient is status post laparoscopic cholecystectomy. Postop day #1. Patient is tolerating clear liquid diet. Denies nausea or vomiting. His pain is controlled. Vital signs stable. PHYSICAL EXAM: VITAL SIGNS: Reviewed. GENERAL: Well-developed in no acute distress. HEENT: No sclera icterus. Extraocular movements grossly intact. Moist buccal mucosa. Head is atraumatic, normocephalic. ABDOMEN: Soft. Nondistended. Nontender with palpation. Positive bowel sounds. Surgical sites clean dry and intact without drainage NEUROLOGIC: Alert and oriented. Cranial nerves II through XII grossly intact. ASSESSMENT: 1. Epigastric pain 2. Chronic cholecystitis 3. Abnormal CT scan revealing mildly distended stomach and circumferential mural thickening of the gastric antrum and proximal duodenum, suspected peptic ulcer disease PLAN: Advance diet as tolerated Pain control Activity as tolerated Incentive spirometer Patient may be discharged home this afternoon from a surgical standpoint Nurse practitioner note has been reviewed by physician. Signing provider agrees with the documented findings, assessment, and plan of care. Objective - Vital Signs Vital signs: Vital Signs Temp 98.0 F 06/19/19 11:36 Pulse 70 06/19/19 11:36 Resp 16 06/19/19 11:36 BP 123/62 06/19/19 11:36 Pulse Ox 94 L 06/19/19 11:36 Intake & Output 06/18/19 06/19/19 06/19/19 18:59 06:59 18:59 Intake Total 1050 1705 Output Total 5 2200 300 Balance 1045 -495 -300 Intake: IV 1050 Intake, IV Titration 1225 Amount Lactated Ringers 1,000 ml 925 @ 125 mls/hr IV .Q8H ONE Rx#:[id number] Sodium Chloride 0.9% 1, 300 000 ml @ 75 mls/hr IV . [id number] TAMELA Rx#:[id number] Oral 480 Output: Urine 2200 300 Estimated Blood Loss 5 Other: Voiding Method Toilet Toilet Urinal # Voids 1 - Labs CBC & Chem 7: 06/19/19 07:20 06/19/19 07:20 Labs: Abnormal Lab Results - Last 24 Hours (Table) 06/19/19 06/19/19 Range/Units 07:20 07:20 Neutrophils # 8.1 H (1.3-7.7) k/uL Sodium 136 L (137-145) mmol/L
--- NOTE | 2019-06-19 15:00 | P.DS ---
Providers Date of admission: 06/18/19 11:20 Expected date of discharge: 06/19/19 Attending physician: Logan Noonan Consults: 06/17/19 12:00 Consult Physician Urgent Consulting Provider: Larisa Kearns Consult Reason/Comments: cp Do you want consulting provider notified?: Yes Consult Physician Urgent Consulting Provider: Marilyn Laurent Consult Reason/Comments: epigastric pain Do you want consulting provider notified?: Yes 06/17/19 16:40 Consult Physician Routine Consulting Provider: Ean Damon Consult Reason/Comments: cholecystitis Do you want consulting provider notified?: Yes Primary care physician: Stated None Hospital Course: Final diagnosis Abdominal pain possibly acute on chronic cholecystitis with cholelithiasis Possible peptic ulcer disease Elevated lipase, possible mild pancreatitis, present on admission Increased calcium with hypercalcemia with possible dehydration, present on admission Increased WBC Gastroesophageal reflux disease Appendectomy History of hernia repair Discharge disposition Agent is being discharged in stable condition with guarded prognosis to home and will follow-up with Dr. Hernandez as a primary care provider. Resources and information provided upon discharge. Patient will follow-up with surgery in the outpatient setting in 1-2 weeks time. History of present illness This is a 74-year-old male who was admitted with abdominal pain and cholecystitis. patient underwent a laparoscopic cholecystectomy during hospitalization. Patient was started on clear liquids and tolerating well patient is advancing diet today and will discharge later this evening. Patient's pain is well controlled at this time. Patient is denying any nausea or vomiting and has been tolerating diet. Patient has been afebrile. Patient d enies any chest pain, shortness of breath, or palpitations at this time. Patient states that he is passing gas and going to the bathroom with no issues. Patient continues to use his incentive spirometer and will do so upon discharge. Patient does not have a primary care provider at this time so the proper resources were provided to him and will follow-up with Dr. Hernandez in the outpatient setting. Surgery was following closely during this hospitalization. Currently patient's condition is stable with much improvement. Guarded prognosis. On exam vital signs are stable. Blood pressure is 123/62, pulse is 70, respirations are 16, temp is 98F, oxygen saturation is 94% on room air. Cardio S1 and S2 are normal. Respiratory system shows clear upon auscultation. Abdomen is soft, obese, with some mild tenderness upon palpation. Nervous system shows no focal deficits and gait is steady. Please refer to medication reconciliation sheet for a list of medications. Plan - Discharge Summary Discharge Rx Participant: No New Discharge Prescriptions: New HYDROcodone/APAP 7.5-325MG [Harrison 7.5-325] 1 tab PO Q6HR PRN 3 Days #12 tab PRN Reason: Pain Levofloxacin [Levaquin] 500 mg PO DAILY 3 Days #3 tab Continue Ranitidine HCl [Zantac] 150 mg PO QAM Discharge Medication List Ranitidine HCl [Zantac] 150 mg PO QAM 07/24/16 [History] HYDROcodone/APAP 7.5-325MG [Harrison 7.5-325] 1 tab PO Q6HR PRN 3 Days #12 tab 06/19/19 [Rx] Levofloxacin [Levaquin] 500 mg PO DAILY 3 Days #3 tab 06/19/19 [Rx] Follow up Appointment(s)/Referral(s): Tylor Hernandez MD [REFERRING] - 06/24/19 1:20 pm Papo Cheek MD [STAFF PHYSICIAN] - 07/01/19 4:15 pm (follow up with Kaitlin.) Ean Damon MD [STAFF PHYSICIAN] - 06/26/19 3:45 pm Patient Instructions/Handouts: *Surgery [facility] - ([facility]) Laparoscopic Cholecystectomy, Hydrocodone/Acetaminophen (By mouth), Levofloxacin (By mouth), Surgical Site Infections (DC) Activity/Diet/Wound Care/Special Instructions: No driving while taking Harrison No lifting over 10 pounds You may shower. No soaking or tub baths Very light activity until you are reevaluated at your follow up appointment with your surgeon Continue current diet and advance as tolerated Discharge Disposition: HOME SELF-CARE
--- NOTE | 2019-06-19 16:38 | PN ---
PROGRESS NOTE DATE OF DICTATION: 06/19/2019 This patient is a 74-year-old pleasant white male admitted to the hospital with severe epigastric pain associated with nausea and vomiting. He had a CT of the abdomen and pelvis done that showed thickening of the pylorus; rule out peptic ulcer disease. He was scheduled for an upper endoscopy yesterday, but in the meantime he was evaluated by Surgery and in fact was scheduled for gallbladder surgery that was performed yesterday. This morning patient is postoperative day number 1, doing well. He states his epigastric pain has resolved. He was on a low-fat diet, tolerating well. No further episodes of nausea or vomiting. PHYSICAL EXAMINATION: He appears comfortable, in no apparent distress. VITAL SIGNS: Stable. Blood pressure is 116/57, pulse rate 85, temperature 97. HEENT examination unremarkable. Conjunctivae pink. Sclerae anicteric. Oral cavity no lesions. NECK: No JVD or lymph node enlargement. CHEST: Clear to auscultation. HEART: Regular rate and rhythm. ABDOMEN: Soft. Bowel sounds are positive. No organomegaly. EXTREMITIES: No pedal edema. SKIN: No rashes. NEUROLOGIC: Alert and oriented x3. No focal deficits. LABS: WBC 10.5, hemoglobin 14.6, platelets normal. Basic metabolic panel is within normal limits. IMPRESSION: 1. Acute onset of severe epigastric pain for the last one week's duration associated with nausea, vomiting. CT of the abdomen and pelvis showed thickening of the pylorus; rule of peptic ulcer disease. Presently on Protonix 40 mg daily and symptoms have resolved. 2. Status post gallbladder surgery yesterday by Dr. Damon. Doing well. RECOMMENDATIONS: 1. Continue with Protonix 40 mg daily. 2. Agree with discharge home today. He was advised to follow up in the office in 3-4 weeks if he has recurrent symptoms. Thank you for this consultation. MMODL / IJN: [id number] /
[2019-06-20] MEDS ORDERED: PANTOPRAZOLE 40 MG TABLET PO SCH (07:30)
[2019-06-20] MEDS ORDERED: LEVOFLOXACIN 500 MG TAB PO SCH (18:00)
--- NOTE | 2019-06-27 12:54 | P.OP ---
Date of Procedure: 06/18/19 Preoperative Diagnosis: Cholecystitis Postoperative Diagnosis: Cholecystitis Procedure(s) Performed: Laparoscopic cholecystectomy Anesthesia: KAMILA Surgeon: Ean Damon Estimated Blood Loss (ml): 5 Pathology: other (Gallbladder) Condition: stable Disposition: PACU Description of Procedure: The patient was placed on the operating table. The patient received a general endotracheal tube anesthesia. The patients abdomen was prepped and draped in the usual sterile fashion. Through an infraumbilical stab incision, the fascia of the anterior abdominal wall was grasped with a pair of Kochers and then the Veress needle was placed in the peritoneal cavity. Position of the Veress needle was confirmed with positive drop test. The abdomen was then insufflated. After adequate insufflation, the 10 mm trocar was placed in the peritoneal cavity. Following this the laparoscope was placed in the peritoneal cavity. The patient was placed in the head-up, right side up position and then a 5 mm trocar was placed in the right lateral and right subcostal position under direct visualization. A 8 mm trocar was placed in the epigastric position. The gallbladder was grasped in the fundus and infundibulum. Traction on the gallbladder was placed in the lateral and the cephalad positions. The triangle of Calot was visualized.. The cystic duct was bluntly dissected until the union of the cystic duct and common bile duct was seen. A critical view of safety was achieved. The cystic duct was then divided and sealed with the Harmonic scissors. A PDS Endoloop was then placed throughout the cystic duct stump. The cystic artery divided and sealed with the Harmonic scissors. The gallbladder was then removed from the liver bed using Harmonic scissors. The gallbladder was then extracted through the epigastric port site. Operative field was checked for any bleeding spots and Harmonic scissors was used to coagulate the liver bed. The abdomen was irrigated. The trocars were removed. The skin was closed using interrupted 3-0 Vicryl suture. Dermabond dressing were applied. The patient tolerated the procedure well.
== END 2019-06-19 14:45 | disposition home or self-care (01) | DRG 417 ==
LOC: EC 10:40 → 1SOBS 12:09 → OBSVTOIN 06-18 11:20 → 3NMEDONC 06-18 16:25
PROVIDERS: ADMIT Hospitalist; ATTEND Hospitalist
PROC: 0FT44ZZ Resection of Gallbladder, Percutaneous Endoscopic Approach (ICD-10-PCS; principal; 2019-06-18 09:30)
DX: K80.12 Calculus of gallbladder with acute and chronic cholecystitis without obstruction (principal); K85.90 Acute pancreatitis without necrosis or infection, unspecified; K27.9 Peptic ulcer, site unspecified, unspecified as acute or chronic, without hemorrhage or perforation; E83.52 Hypercalcemia; E86.0 Dehydration; Z96.1 Presence of intraocular lens; E66.9 Obesity, unspecified; K80.10 Calculus of gallbladder with chronic cholecystitis without obstruction; K21.9 Gastro-esophageal reflux disease without esophagitis; Z98.42 Cataract extraction status, left eye; Z98.41 Cataract extraction status, right eye; Z80.8 Family history of malignant neoplasm of other organs or systems; Z87.11 Personal history of peptic ulcer disease; Z79.899 Other long term (current) drug therapy; Z90.49 Acquired absence of other specified parts of digestive tract; Z91.030 Bee allergy status
CPT/HCPCS: 36415; 71046; 74018; 74176; 76705; 80048; 80053; 80061; 81003; 82150; 83690; 83735; 84484; 85025; 85610; 85730; 88304; 93005; 93979; 96374; 96375; 99285

== ENCOUNTER 2019-07-09 09:09 | Day surgery (SDC) | payer MEDICARE ==
[2019-07-08 11:52] VITALS: BMI 22.2
[~2019-07-09 09:09] MED LIST changes: -BUPIVACAINE (PF) 0.5% 4.5 ML, HYALURONIDASE, HUMAN RECOMB 150 UNIT, LIDOCAINE 2% (PF) 9... IO ONE; +LIDOCAINE 1% 20 ML VIAL (10MG/ML) FOR IV START INTRADERMA PRN; -MOXIFLOXACIN HCL 0.5% DROPS 3 ML BTL OP ONE; -TETRACAINE 0.5% OPHTH (PF) DROPS 4 ML BTL OP ONE; -TIMOLOL 0.5% OPHTH DROPS 5 ML BTL OP ONE
[2019-07-09 11:21] VITALS: TEMP 98.4
[2019-07-09] MEDS: CYCLOPENTOLATE 1% OPHTH SOLN 2 ML BTL OP ONE ×3 (11:29→11:36)
[2019-07-09] MEDS: PHENYLEPHRINE 10% OPHTH DROPS 5 ML BTL OP ONE ×3 (11:31→11:38)
[2019-07-09] MEDS ORDERED: LIDOCAINE 1% (PF) 10MG/ML VIAL SQ ONE (12:21)
[2019-07-09] MEDS ORDERED: BALANCED SALT IRRIG SOLN COMB2 15 ML IRRIG.SOLN IRRIGATION ONE ×2 (12:21→12:47)
[2019-07-09] MEDS ORDERED: fentaNYL (PF) 50 MCG/ML 2 ML AMP ONE (12:21)
[2019-07-09] MEDS ORDERED: PROPOFOL 10 MG/ML 20 ML VIAL IV ONE (12:21)
[2019-07-09] MEDS ORDERED: HYALURONATE SODIUM INTRAOCULAR 1 EACH SYRINGE (12MG/ML) INTRAOCULA ONE ×2 (12:21→12:46)
[2019-07-09] MEDS: TOBRA-DEXAMET 0.3-0.1% OPHTH OINT 3.5 GM TUBE OPHTHALMIC ONE ×2 (12:22→12:47)
[2019-07-09] MEDS ORDERED: EPINEPHrine (PF) 0.3 ML in BALANCED SALT IRRIG SOLN COMB2 500 ML IRRIGATION ONE (12:29)
[2019-07-09] MEDS: BUPIVACAINE (PF) 0.75% 5 ML, HYALURONIDASE, HUMAN RECOMB 150 UNIT, LIDOCAINE 2% (PF) 10... MISCELLANE ONE ×6 (12:29→12:47)
[2019-07-09] MEDS ORDERED: ACETYLCHOLINE CHLORIDE 10 MG/ML 2 ML KIT INTRAOCULA ONE (13:14)
--- NOTE | 2019-07-09 14:14 | P.OP ---
Date of Procedure: 07/09/19 Preoperative Diagnosis: phacodonesis left Postoperative Diagnosis: same Procedure(s) Performed: Reyna scleral suture IOL, left Implants: none Anesthesia: MAC, regional Surgeon: Ayad Gordillo Estimated Blood Loss (ml): 5 Pathology: none sent Condition: stable Disposition: same day Indications for Procedure: distorted vision Operative Findings: No complications
[2019-07-09 14:17] VITALS: RESP 16
[2019-07-09 14:43] VITALS: BP 145/76; PULSE 74
--- NOTE | 2019-07-10 07:06 | OP ---
OPERATIVE REPORT DATE OF SURGERY: 07/09/2019 PROCEDURE: Scleral fixation of intraocular lens of the left eye. PREOPERATIVE DIAGNOSIS: Phacodonesis. POSTOPERATIVE DIAGNOSIS: Phacodonesis. SURGEON: Dr. Ayad Gordillo. ANESTHESIA: Regional with retrobulbar anesthetic. ESTIMATED BLOOD LOSS: Less than 5 mL. SPECIMEN TAKEN: None. NARRATIVE: This is a 74-year-old male who has undergone prior fixation of an intraocular lens due to phacodonesis post intraocular lens implantation a number of years ago. He presents again with a new phacodonesis problem which has been present for approximately 1 month. Examination of his eye in March did not reveal any laxity of his fixation at that particular time. Today he is presenting for correction of the loose haptic of the intraocular lens in his left eye. After obtaining the appropriate consent, the patient was brought to the operating room. There, he was placed under cardiac monitoring, so he could receive his regional anesthetic. While the patient was being monitored, he was administered propofol and induced into a twilight sleep. Once he was adequately sedated, the lower left eyelid was prepped with an alcohol wipe and above the orbital rim through the eyelid using a modified 25-gauge inch and a half needle with the tip being blunted, a solution of 1% lidocaine without epinephrine, bupivacaine without epinephrine and Wydase was injected into the retrobulbar space. Approximately 6 mL of the solution was then left to dwell for approximately 5 minutes after placing a Honan balloon on the eye. When the patient had awakened, confirmation of adequate block of the extraocular muscles was confirmed. The patient was then prepped and draped in the usual sterile manner. He was approached from his left temporal side and examination of the patient's eye revealed the orientation of the lens, particularly the loose haptic, was approximately at the axis of about 75 degrees. A paracentesis was performed in the inferonasal quadrant through the cornea and a scleral pocket was created in the superior temporal quadrant anticipating fixation of just the loose superior haptic. Normally the approach is to use a 27-gauge needle to dock a 9-0 Prolene to capture the haptic in the anterior chamber; however, the configuration of the 9-0 Prolene needle did not allow itself to be properly docked within a 27-gauge hypodermic needle. Therefore, a freehanded approach to place the 9-0 Prolene directly in the sclera was made. An additional incision at approximately 3 o'clock was performed using a 2.5 mm keratome with some viscoelastic placed above and below the intraocular lens. A 9-0 Prolene was then advanced from the inferonasal quadrant through the paracentesis over the lens optic and beneath the superior haptic. Using micro forceps the needle was then passed through the sclera and conjunctival tissue in the superior temporal quadrant as planned. The other half of the 9-0 Prolene was also once again passed through the inferonasal paracentesis over the lens and over the haptic in this region and again passed through the sclera as desired. Confirmation as to whether or not one needle was more superior to the other was difficult to assess at this point; however, it would have been desirable to have had the needle running beneath the haptic to a point slightly posterior to the needle and suture passing over the haptic in this particular area. However, without guidance, it was not entirely assured that was the case. This became more apparent when following the amputation of the STC-6 needle being removed from the polypropylene suture when the loose ends were then tied together after being brought out of the scleral pocket. Suture was secured in the typical 3, 1, 1 fashion and initially the lens implant appeared to position very nicely within the center of the pupil. To ensure stability at this point, Miochol was brought in to bring about pupillary miosis. During the course of this process, it was identified that the lens began to shift in a nasal direction and also appeared to shift in a somewhat tipped fashion across the axis between the 2 haptics. Multiple attempts to reposition the lens using a Sinskey hook and other intraocular instruments proved to be largely unsatisfactory. Therefore, it was decided to attempt to re-secure the inferior haptic in a similar fashion. However, after multiple attempts of passing suture over the lens and underneath the haptic as desired met with considerable difficulty, partly because the inferior haptic was still secure in its previously fixated position. Therefore, at this point in time, any additional manipulation of the lens was aborted. Irrigation and aspiration of the viscoelastic from within the anterior chamber was removed with the irrigation and aspiration and the temporal incision was closed with a single 10-0 nylon suture in an X fashion. Tobramycin ointment was placed on the patient's eye and he was patched and shielded in the usual fashion. There were no additional difficulties encountered during the procedure and he was returned to recovery in good condition. MMJONATHANL / ANGELESN: [id number] / QAMAR
== END 2019-07-09 14:52 | disposition home or self-care (01) ==
LOC: OR 09:09
PROVIDERS: ATTEND Ophthalmology
DX: T85.22XA Displacement of intraocular lens, initial encounter (principal); H53.2 Diplopia; H53.021 Refractive amblyopia, right eye; H52.03 Hypermetropia, bilateral; H52.223 Regular astigmatism, bilateral; H52.4 Presbyopia; Z96.1 Presence of intraocular lens; K21.9 Gastro-esophageal reflux disease without esophagitis; Z79.899 Other long term (current) drug therapy; Z98.890 Other specified postprocedural states; Z82.49 Family history of ischemic heart disease and other diseases of the circulatory system; Z83.518 Family history of other specified eye disorder
CPT/HCPCS: 66825; J3470; J2001; J0171; J3010; J2704

== ENCOUNTER 2019-07-30 09:00 | Day surgery (SDC) | payer MEDICARE ==
[2019-07-29 09:16] VITALS: BMI 22.4
[~2019-07-30 09:00] MED LIST changes: +DEXAMETHASONE SOD PHOSPHATE 10 MG/ML 1 ML VIAL IV ONE; +HEPARIN SODIUM,PORCINE 5,000 UNIT/ML 1 ML VIAL SQ ONE; +HYDROmorphone 0.5 MG/0.5 ML SYRINGE IVP PRN; +MIDAZOLAM 2 MG/2 ML VIAL IV PRN; +ONDANSETRON 4 MG/2 ML VIAL IVP ONE; +SCOPOLAMINE 1.5MG/72HR PATCH TRANSDERM ONE
[2019-07-30] MEDS ORDERED: MIDAZOLAM 2 MG/2 ML VIAL IVP ONE (10:31)
[2019-07-30] MEDS ORDERED: KETAMINE 10 MG/ML 20 ML VIAL ONE (12:56)
[2019-07-30] MEDS ORDERED: NEOSTIGMINE 1 MG/ML 10 ML VIAL ONE (12:56)
[2019-07-30] MEDS ORDERED: fentaNYL (PF) 50 MCG/ML 2 ML AMP ONE (12:56)
[2019-07-30] MEDS ORDERED: MIDAZOLAM 2 MG/2 ML VIAL ONE (12:56)
[2019-07-30] MEDS ORDERED: KETOROLAC 30 MG/ML 1 ML VIAL ONE (12:56)
[2019-07-30] MEDS ORDERED: LIDOCAINE 1% INJ 10MG/ML (20 ML MDV) ONE (12:56)
[2019-07-30] MEDS ORDERED: ROPIVACAINE 5 MG/ML 30 ML VIAL ONE (12:56)
[2019-07-30] MEDS ORDERED: ROCURONIUM BROMIDE 10 MG/ML 10 ML VIAL IV ONE (12:56)
[2019-07-30] MEDS ORDERED: GLYCOPYRROLATE 0.2 MG/ML 2 ML VIAL ONE (12:56)
[2019-07-30] MEDS ORDERED: PROPOFOL 10 MG/ML 20 ML VIAL IV ONE (12:56)
[2019-07-30] MEDS ORDERED: SUCCINYLCHOLINE CHLORIDE 100 MG/5 ML SYR IV ONE (12:56)
--- NOTE | 2019-07-30 13:15 | P.GSHP ---
History of Present Illness H&P Date: 07/30/19 Chief Complaint: Umbilical hernia This a 74-year-old male with complaints of umbilical hernia. Patient presents today for laparoscopic robotic system repair. Past Medical History Past Medical History: GERD/Reflux Additional Past Medical History / Comment(s): states having routine stress test today, no cardiac problems per pt. History of Any Multi-Drug Resistant Organisms: None Reported Past Surgical History: Appendectomy, Cholecystectomy, Hernia Repair Additional Past Surgical History / Comment(s): LEFT CATARACT/LENS SURGERY. RIGHT CATARACT AND LENS IMPLANT, recent eye surg. Past Anesthesia/Blood Transfusion Reactions: No Reported Reaction Smoking Status: Never smoker - Past Family History Brother(s) Family Medical History: Cancer Additional Family Medical History / Comment(s): KIDNEY AND BRAIN CANCER Medications and Allergies Home Medications Medication Instructions Recorded Confirmed Type No Known Home Medications 07/29/19 07/30/19 History Allergies Allergy/AdvReac Type Severity Reaction Status Date / Time venom-honey bee Allergy Swelling Verified 07/30/19 09:41 [bee venom (honey bee)] Surgical - Exam Vital Signs Temp Pulse Resp BP Pulse Ox 97.3 F L 65 16 145/67 95 07/30/19 09:41 07/30/19 09:41 07/30/19 09:41 07/30/19 09:41 07/30/19 09:41 - General well developed, well nourished - Eyes PERRL - ENT normal pinna - Neck no masses - Respiratory normal expansion - Cardiovascular Rhythm: regular - Abdomen Abdomen: soft, non tender Hernia: umbilical (3 cm umbilical hernia) Assessment and Plan Assessment: Umbilical hernia. We'll perform laparoscopic robotic-assisted repair.
[2019-07-30] MEDS ORDERED: BUPIVACAINE (PF) 0.5% 30 ML VIAL SQ ONE ×2 (13:25)
[2019-07-30 14:04] VITALS: TEMP 97
[2019-07-30 14:27] VITALS: RESP 16
[2019-07-30 15:42] VITALS: BP 168/86; PULSE 75
--- NOTE | 2019-07-31 11:21 | P.ANPRN ---
Procedure Note - Anesthesia - Nerve Block Performed Bilateral Rectus Abdominis Single Time Out Performed: Yes Date of Procedure: 07/31/19 Procedure Start Time: 10:31 Procedure Stop Time: 10:36 Location of Patient Procedure: PreOp Indication: Acute Post-Operative Pain, Requested by Surgeon Sedation Type: Sedate with meaningful contact maintained Preparation: Sterile Prep Position: Supine Needle Types: Pajunk Needle Gauge: 21 Ultrasound used to visualize needle placement: Yes Ultrasound used to observe medication spread: Yes Blood Aspirated: No Pain Paresthesia on Injection Noted: No Resistance on Injection: Normal Image Stored and Saved: Yes Events: Uneventful and Well Tolerated (ropi .5% 15cc plus xylo 2% with epi 5cc each side)
--- NOTE | 2019-08-08 16:05 | P.OP ---
Date of Procedure: 07/30/19 Preoperative Diagnosis: Umbilical hernia Postoperative Diagnosis: Umbilical hernia Procedure(s) Performed: Laparoscopic robotic-assisted repair of umbilical hernia Partial omentectomy Anesthesia: KAMILA Surgeon: Ean Damon Estimated Blood Loss (ml): 5 Pathology: other (Omentum) Condition: stable Disposition: PACU Description of Procedure: The patient was placed on the operating table in the supine position. He received general anesthesia. His abdomen was prepped and draped usual fashion. Using a 5 mm optical trocar under direct visualization the peritoneal cavity was entered in the left upper quadrant. The abdomen was then insufflated. The laparoscope was placed back into the perineal cavity. Next a 8 mm robotic trocar was placed in the left lower quadrant and a 12 mm robotic trocar was placed in the left lateral position. The original 5 mm trocar was exchanged for a 8 mm robotic trocar. The patient's placed in the left side up position. And the patient was undocked the robot. The umbilical hernia was visualized. Using hook cautery the peritoneum over the umbilical hernia was excised. The incarcerated omentum was dissected free with the hook cautery and sent to pathology. The fascial opening was repaired using 0V LOC suture. Next a piece of 11 cm round ventral light ST mesh was placed into the. Cavity and secured with 2 OV lock suture. The patient was undocked the robot. The needles were retrieved. The fascia of the 12 mm trocar site was closed with 0 Ethibond suture. Skin was closed interrupted 3-0 Monocryl suture. Dermabond dressings was applied. Patient top procedure well and was sent to recovery room stable condition.
== END 2019-07-30 16:04 | disposition home or self-care (01) ==
LOC: OR 09:00
PROVIDERS: ATTEND Surgery
DX: K42.9 Umbilical hernia without obstruction or gangrene (principal); K21.9 Gastro-esophageal reflux disease without esophagitis; Z90.49 Acquired absence of other specified parts of digestive tract; Z98.42 Cataract extraction status, left eye; Z98.41 Cataract extraction status, right eye; Z96.1 Presence of intraocular lens; Z80.51 Family history of malignant neoplasm of kidney; Z80.8 Family history of malignant neoplasm of other organs or systems; Z91.030 Bee allergy status
CPT/HCPCS: 64488; 88302; 49652; C1781; J2250; J1100; J2710; J0690; J2405; J2001; J3010; J1885; J2795; J0330; J2704

== ENCOUNTER 2020-08-11 08:18 | Day surgery (SDC) | payer MEDICARE ==
[2020-08-10 08:25] VITALS: BMI 22.2
[~2020-08-11 08:18] MED LIST changes: +ATROPINE OPHTH SOLN 1% 5ML BTL BOTH EYES NR; -DEXAMETHASONE SOD PHOSPHATE 10 MG/ML 1 ML VIAL IV ONE; -HEPARIN SODIUM,PORCINE 5,000 UNIT/ML 1 ML VIAL SQ ONE; -HYDROmorphone 0.5 MG/0.5 ML SYRINGE IVP PRN; -LIDOCAINE 1% 20 ML VIAL (10MG/ML) FOR IV START INTRADERMA PRN; -MIDAZOLAM 2 MG/2 ML VIAL IV PRN; -ONDANSETRON 4 MG/2 ML VIAL IVP ONE; +ONDANSETRON 4 MG/2 ML VIAL IVP PRN; +OPTHALMIC LEFT EYE SCH; -SCOPOLAMINE 1.5MG/72HR PATCH TRANSDERM ONE; +TOBRA-DEXAMET 0.3-0.1% OPHTH DROPS 2.5 ML BTL OPHTHALMIC NR; +[UNRECOGNIZED DRUG - OTHER] LEFT EYE SCH; +fentaNYL (PF) 50 MCG/ML 2 ML AMP IV PRN
[2020-08-11 09:01] VITALS: RESP 16; TEMP 98.4
[2020-08-11] MEDS: PILOCARPINE 2% OPHTH DROPS 15 ML BTL OPHTHALMIC ONE ×3 (09:04→09:14)
[2020-08-11] MEDS ORDERED: MIDAZOLAM 2 MG/2 ML VIAL ONE (10:00)
[2020-08-11] MEDS ORDERED: fentaNYL (PF) 50 MCG/ML 2 ML AMP ONE (10:00)
[2020-08-11] MEDS ORDERED: TRYPAN BLUE 0.06% SYRINGE 0.5 ML SYRINGE INTRAOCULA ONE (10:31)
[2020-08-11] MEDS ORDERED: BALANCED SALT IRRIG SOLN COMB2 15 ML IRRIG.SOLN IRRIGATION ONE (10:31)
[2020-08-11] MEDS ORDERED: LIDOCAINE 1% (PF) 10 MG/ML (30 ML SDV) SQ ONE (10:34)
[2020-08-11] MEDS ORDERED: BALANCED SALT IRRIG SOLN COMB2 500 ML IRRIGATION ONE (10:39)
--- NOTE | 2020-08-11 11:18 | P.OP ---
Date of Procedure: 08/11/20 Preoperative Diagnosis: bullous keratopathy Postoperative Diagnosis: same Procedure(s) Performed: DMEK Implants: none Anesthesia: MAC Surgeon: Ayad Gordillo Pathology: none sent Condition: stable Disposition: same day Indications for Procedure: corneal edema/poor vision Operative Findings: tissue slipped between iris and lens was not accomplisehd, otherwise no complications.
[2020-08-11 11:42] VITALS: BP 152/80; PULSE 77
[2020-08-12] MEDS ORDERED: TETRACAINE 0.5% OPHTH (PF) DROPS 4 ML BTL OP ONE (05:00)
[2020-08-12] MEDS ORDERED: MOXIFLOXACIN HCL 0.5% DROPS 3 ML BTL OP ONE (05:00)
[2020-08-12] MEDS ORDERED: TIMOLOL 0.5% OPHTH DROPS 5 ML BTL OP ONE (05:00)
--- NOTE | 2020-08-12 10:41 | OP ---
OPERATIVE REPORT DATE OF SURGERY: 08/11/2020. PROCEDURE: Descemet's membrane endothelial keratoplasty of the left eye. PREOPERATIVE DIAGNOSIS: Pseudophakic bullous keratopathy. POSTOPERATIVE: Pseudophakic bullous keratopathy. SURGEON: Dr. Ayad Gordillo. ANESTHESIA: Topical. ESTIMATED BLOOD LOSS: None. SPECIMEN TAKEN: None except for donor tissue which was submitted for culture and sensitivity. NARRATIVE: Mr. Cruz is a 75-year-old gentleman who previously had multiple difficulties with phacodonesis and lens dislocation requiring multiple operations to position the lens in the proper axis for good visual acuity. Additionally, he has a history of amblyopia in the unaffected eye which made the purpose of the procedure more imperative to attempt to try to maintain normal activities of daily living. Therefore, he was brought to surgery to repair the failing endothelium due to the previous multiple operations. Additionally, the most recent operation to correct the difficulty with stabilizing the intra-ocular lens was accomplished by way of retinal specialty utilizing scleral fixation of the lens haptics and performing a complete vitrectomy of the posterior chamber as well as suturing of the iris to return the irregular pupillary sphincter to a more functional level. However, following all of these additional procedures, the endothelium failed and the cornea had imbibed enough of the normal aqueous and anterior fluids to have swelled to approximately 1 mm in thickness, thereby totally degrading his vision to hand motion level. Therefore, the patient had completed the proper consent, was brought to the operating room, placed under cardiac monitoring, prepped and draped in the usual sterile manner. He was approached from his left temporal side using an MVR blade, four paracenteses were created in the peripheral limbus of the eye, and an 8.25 trephination blade was used to oscar the central 8 mm or so of desquamated membrane which was intended to be stripped. Lidocaine MPF was instilled into the anterior chamber, followed by tri aburto blue which was left in the eye for approximately 3 minutes and irrigated with balanced salt solution. At the 3 o'clock position, a 2.5 mm keratome was used to create a self- sealing corneal flap incision. The size was adjusted so as to allow introduction of the Ayala tube into the anterior chamber. The eye was stabilized with Amvisc and using a Collins Sinskey hook. the 8 quarter mm area defined on the anterior surface was inscribed on the endothelial side and using a Descemet's stripping tool, the endothelium in the center portion of the cornea was removed from the patient's eye without difficulty. Donor tissue from the eye bank identified as [id number] was brought to the table and placed on a 3 mm syringe filled with balanced salt solution. The transport protective tip was removed and the pre-loaded D MAC tissue was brought to the patient's eye. The tissue was inserted without difficulty and the temporal incision was closed with a single 10-0 nylon suture in an X fashion. Both the solution as well as the portion of the corneal tissue was submitted for culture, sensitivity and any indication of bacterial ingrowth. Attention was then directed to the patient and attempts to unscroll the Desma membrane tissue proved to be difficult as both the anterior and posterior chambers were filled solely with aqueous solution due to the previous surgeries including the vitrectomy. There was significant difficulty in getting control over the scrolled up Descemet's membrane tissue. During the course of the procedure, the cornea itself became progressively more difficult and using a 20% solution of glycerin was placed topically on the patient's eye in an attempt to clarify and the corneal stroma. At this point it was identified that the Descemet's membrane tissue had become caught between the anterior surface of the lens and the posterior pupillary sphincter. The temporal sutured incision was sacrificed and attempts to retrieve the Descemet's membrane tissue proved to be unsuccessful and floated into the posterior chamber in an unrestrained fashion. At this point, it was decided to stop the surgery without being able to place the Descemet's membrane tissue against the patient's cornea as was intended. The temporal incision was closed again with a single 10-0 nylon suture and the patient then received 2 drops of moxifloxacin as well as 2 drops of 0.5% timolol and the patient's eye was then shielded in the usual manner. There were no additional difficulties encountered during the course of the procedure and the patient was returned to recovery in good condition. MMJONATHANL / ANGELESN: [id number] /
--- NOTE | 2020-08-13 18:54 | OP ---
OPERATIVE REPORT DATE OF PROCEDURE: 08/13/2020 PROCEDURE: Descemet's membrane endothelial keratoplasty rebubbling of the left eye. PREOPERATIVE DIAGNOSIS: Bullous keratopathy with failed primary attachment of Descemet's membrane and endothelial keratoplasty. POSTOPERATIVE DIAGNOSIS: Bullous keratopathy with failed primary attachment of Descemet's membrane and endothelial keratoplasty. SURGEON: Dr. Ayad Gordillo. ANESTHESIA: Topical. ESTIMATED BLOOD LOSS: None. SPECIMEN TAKEN: None. NARRATIVE: After obtaining the appropriate consent, the patient was brought to the operating room. There he was placed on cardiac monitoring, prepped and draped in the usual sterile manner. He was approached from his left temporal side. Identification of the 4 previous paracenteses was made and marked with gentian sean. The temporal incision was also opened with an irrigating cannula. Through one of the paracenteses, 1% lidocaine MPF 50:50 mix with balanced salt solution was injected into the anterior chamber. Due to the lack of clarity through the present cornea, a debridement of the corneal epithelium was performed with Weck-Ashlyn sponges. Once the epithelium was removed, then 50% glycerine was used to the corneal stroma. Identification of the Descemet's membrane transplant was made, and it appeared to be in a reasonably tight scroll. Initial attempts to begin to manipulate the tissue through controlled depth of the anterior chamber was met with some difficulty. Unfortunately, during the course of the manipulation the transplant tissue found its way through a small irregularity between the intraocular lens and the iris at about 1 o'clock. Attempts to retrieve the tissue prior to its falling into the posterior chamber were unsuccessful. At this stage of the game, it was best determined to abort any further manipulations of the eye. The patient received 2 drops of 0.5% timolol followed by moxifloxacin drops, and a Bandage soft contact lens was placed on the patient's eye. He was then lightly shielded in the usual manner. There were no additional difficulties encountered and he was returned to Recovery in good condition. MMODL / IJN: [id number] /
== END 2020-08-11 11:57 | disposition home or self-care (01) ==
LOC: OR 08:18
PROVIDERS: ATTEND Ophthalmology
DX: H18.12 Bullous keratopathy, left eye (principal); H18.232 Secondary corneal edema, left eye; T85.328A Displacement of other ocular prosthetic devices, implants and grafts, initial encounter; H53.2 Diplopia; H53.021 Refractive amblyopia, right eye; H52.03 Hypermetropia, bilateral; H52.223 Regular astigmatism, bilateral; H52.4 Presbyopia; K21.9 Gastro-esophageal reflux disease without esophagitis; Z79.899 Other long term (current) drug therapy; Z98.41 Cataract extraction status, right eye; Z98.42 Cataract extraction status, left eye; Z90.49 Acquired absence of other specified parts of digestive tract; Z98.890 Other specified postprocedural states; Z96.1 Presence of intraocular lens; Z82.49 Family history of ischemic heart disease and other diseases of the circulatory system; Z80.8 Family history of malignant neoplasm of other organs or systems; Z83.518 Family history of other specified eye disorder
CPT/HCPCS: 87070; 87205; 87075; 65756; 66999; V2785; J2250; J2001; J3010

== ENCOUNTER 2020-08-13 10:42 | Day surgery (SDC) | payer MEDICARE ==
[2020-08-12 13:06] VITALS: BMI 22.2
[~2020-08-13 10:42] MED LIST changes: -ATROPINE OPHTH SOLN 1% 5ML BTL BOTH EYES NR; +LIDOCAINE 1% (10MG/ML) FOR IV START INTRADERMA PRN; -ONDANSETRON 4 MG/2 ML VIAL IVP PRN; -OPTHALMIC LEFT EYE SCH; -[UNRECOGNIZED DRUG - OTHER] LEFT EYE SCH; -fentaNYL (PF) 50 MCG/ML 2 ML AMP IV PRN
[2020-08-13] MEDS: PILOCARPINE 2% OPHTH DROPS 15 ML BTL OPHTHALMIC ONE ×3 (11:28→11:34)
[2020-08-13 11:33] VITALS: TEMP 97.9
[2020-08-13] MEDS ORDERED: fentaNYL (PF) 50 MCG/ML 2 ML AMP ONE (13:53)
[2020-08-13] MEDS ORDERED: MIDAZOLAM 2 MG/2 ML VIAL ONE (13:53)
[2020-08-13] MEDS ORDERED: BALANCED SALT IRRIG SOLN COMB2 15 ML IRRIG.SOLN INTRAOCULA ONE (14:18)
[2020-08-13] MEDS ORDERED: LIDOCAINE 1% INJ 10MG/ML (10 ML MDV) SQ ONE (14:20)
[2020-08-13] MEDS ORDERED: MOXIFLOXACIN HCL 0.5% DROPS 3 ML BTL LEFT EYE ONE (14:34)
[2020-08-13] MEDS ORDERED: TIMOLOL 0.5% OPHTH DROPS 5 ML BTL LEFT EYE ONE (14:35)
--- NOTE | 2020-08-13 14:49 | P.OP ---
Date of Procedure: 08/13/20 Preoperative Diagnosis: unattached DMEK transplant Postoperative Diagnosis: same Procedure(s) Performed: rebubbling DMEK Anesthesia: MAC Surgeon: Ayad Gordillo Pathology: none sent Condition: stable Disposition: same day Indications for Procedure: unattached transplant Operative Findings: unable to attach
[2020-08-13 14:50] VITALS: RESP 16
[2020-08-13 15:02] VITALS: BP 145/79; PULSE 65
[2020-08-14] MEDS ORDERED: TETRACAINE 0.5% OPHTH (PF) DROPS 4 ML BTL OP ONE (05:00)
== END 2020-08-13 15:35 | disposition home or self-care (01) ==
LOC: OR 10:42
PROVIDERS: ATTEND Ophthalmology
DX: T86.8412 Corneal transplant failure, left eye (principal); H18.12 Bullous keratopathy, left eye; H18.232 Secondary corneal edema, left eye; H53.2 Diplopia; H53.021 Refractive amblyopia, right eye; H52.03 Hypermetropia, bilateral; H52.223 Regular astigmatism, bilateral; H52.4 Presbyopia; K21.9 Gastro-esophageal reflux disease without esophagitis; Z96.1 Presence of intraocular lens; Z98.41 Cataract extraction status, right eye; Z98.42 Cataract extraction status, left eye; Z98.890 Other specified postprocedural states; Z79.899 Other long term (current) drug therapy; Z83.518 Family history of other specified eye disorder; Z80.8 Family history of malignant neoplasm of other organs or systems; Z82.49 Family history of ischemic heart disease and other diseases of the circulatory system
CPT/HCPCS: 65756; J2250; J3010; J2001

== ENCOUNTER 2020-08-17 11:41 | Day surgery (SDC) | payer MEDICARE ==
[~2020-08-17 11:41] MED LIST changes: +BUPIVACAINE (PF) 0.5% 4.5 ML, HYALURONIDASE, HUMAN RECOMB 150 UNIT, LIDOCAINE 2% (PF) 9... IO ONE; -LACTATED RINGERS 1,000 ML IV SCH; -LIDOCAINE 1% (10MG/ML) FOR IV START INTRADERMA PRN; +OPTHALMIC LEFT EYE SCH; +TETRACAINE 0.5% OPHTH (PF) DROPS 4 ML BTL OP ONE; -TOBRA-DEXAMET 0.3-0.1% OPHTH DROPS 2.5 ML BTL OPHTHALMIC NR; +[UNRECOGNIZED DRUG - OTHER] LEFT EYE SCH
[2020-08-17 12:14] VITALS: TEMP 97
[2020-08-17] MEDS ORDERED: LACTATED RINGERS 1,000 ML IV ONE (12:16)
[2020-08-17] MEDS ORDERED: PROPOFOL 10 MG/ML 20 ML VIAL IV ONE (13:37)
[2020-08-17] MEDS ORDERED: BALANCED SALT IRRIG SOLN COMB2 15 ML IRRIG.SOLN IRRIGATION ONE (14:07)
[2020-08-17] MEDS ORDERED: BUPIVACAINE (PF) 0.5% 30 ML VIAL ONE (14:07)
[2020-08-17] MEDS ORDERED: HYALURONATE SODIUM INTRAOCULAR 1 EACH SYRINGE (12MG/ML) INTRAOCULA ONE (14:16)
[2020-08-17] MEDS ORDERED: TIMOLOL 0.5% OPHTH DROPS 5 ML BTL LEFT EYE ONE (14:18)
[2020-08-17] MEDS ORDERED: MOXIFLOXACIN HCL 0.5% DROPS 3 ML BTL LEFT EYE ONE (14:18)
--- NOTE | 2020-08-17 16:12 | P.OP ---
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
[2020-08-17 16:28] VITALS: RESP 18
[2020-08-17 16:40] VITALS: BP 153/69; PULSE 62
--- NOTE | 2020-08-17 18:37 | OP ---
OPERATIVE REPORT DATE OF SURGERY: August 17, 2020. PROCEDURE PERFORMED: Pupilloplasty of the left eye and Descemet stripping and automated endothelial keratoplasty of the left eye. 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 SURGEON: Dr. Ayad Gordillo. ANESTHESIA: With a regional block. ESTIMATED BLOOD LOSS: None. SPECIMEN TAKEN: None. NARRATIVE: This patient is a patient who underwent a Descemet's membrane endothelial keratoplasty, which was unsuccessful on August 11 and attempted re- bubbling of the tissue on the and noted to have not had attachment of the tissue on August 15. He was brought to the operating room to correct this problem through a Descemet's automated endothelial keratoplasty procedure. In addition, because of previous eye surgery, the pupil was irregular and in excessively large and therefore pupilloplasty was recommended as part of today's procedure. NARRATIVE: After signing the appropriate consent, the patient was brought to the operating room where he was placed under cardiac monitoring. A retrobulbar anesthetic consisting of bupivacaine, lidocaine and hyaluronidase was injected into the retrobulbar space with a 25-gauge Johns needle. After the patient was induced into twilight with propofol. After a Honan balloon was placed on the eye for 5 minutes, he was then prepped and draped in the usual sterile manner. He was approached from his left temporal side and 4 paracenteses were performed in the diagonal clock hours and the temporal incision was opened sacrificing the previously placed 10-0 nylon suture. First part of the procedure to improve clarity on the eye was to remove all the epithelium once again, and a 50% glycerine drop was placed on the patient's cornea and left to dwell. After sufficient time, a 10-0 Prolene suture was used to correct the overly enlarged pupillary sphincter. The core ectropia was corrected using a Siepser sliding knot. Once this was accomplished, the pupil was more round and brought to approximately 3.5 mm in diameter. Attention was then directed to creating a desect button. Unfortunately during the course of the procedure, during the course of set up, it was identified that 1 of the connecting hoses was unavailable and therefore the procedure could not proceed any further. Therefore, the remaining viscoelastic had been placed in the patient's eye for the seeps or not was removed under irrigation aspiration and the temporal 10-0 nylon suture was then replaced. A bandage zero power contact lens was placed on the patient's eye and he then received 2 drops of 0.5% timolol followed by 2 drops of moxifloxacin and then was shielded in the usual manner. There were no other difficulties encountered during the course of the procedure. He tolerated the procedure well, was returned to outpatient recovery in good condition. MMODL / ANGELESN: [id number] / MTDMarcello
== END 2020-08-17 17:10 | disposition home or self-care (01) ==
LOC: OR 11:41
PROVIDERS: ATTEND Ophthalmology
DX: T86.8412 Corneal transplant failure, left eye (principal); Q13.2 Other congenital malformations of iris; H18.12 Bullous keratopathy, left eye; H18.232 Secondary corneal edema, left eye; H53.2 Diplopia; H53.021 Refractive amblyopia, right eye; H52.03 Hypermetropia, bilateral; H52.223 Regular astigmatism, bilateral; H52.4 Presbyopia; Z96.1 Presence of intraocular lens; Z98.41 Cataract extraction status, right eye; Z98.42 Cataract extraction status, left eye; Z79.899 Other long term (current) drug therapy; K21.9 Gastro-esophageal reflux disease without esophagitis; Z80.8 Family history of malignant neoplasm of other organs or systems; Z82.49 Family history of ischemic heart disease and other diseases of the circulatory system; Z83.518 Family history of other specified eye disorder; Z98.890 Other specified postprocedural states; Z90.49 Acquired absence of other specified parts of digestive tract; Z91.030 Bee allergy status
CPT/HCPCS: 66680; J3470; J2001; J2704

== ENCOUNTER → 2020-10-01 | Day surgery (SDC) | payer MEDICARE ==
[2020-09-29 10:36] VITALS: BMI 21.5
[~2020-10-01] MED LIST changes: +BALANCED SALT IRRIG SOLN COMB2 15 ML IRRIG.SOLN IRRIGATION ONE; +GLYCERIN LEFT EYE ONE; +LACTATED RINGERS 1,000 ML IV ONE; +LACTATED RINGERS 1,000 ML IV SCH; +MIDAZOLAM 2 MG/2 ML VIAL ONE; +MOXIFLOXACIN HCL 0.5% DROPS 3 ML BTL OP PRN; -OPTHALMIC LEFT EYE SCH; +PILOCARPINE 2% OPHTH DROPS 15 ML BTL OP PRN; +PROPOFOL 10 MG/ML 20 ML VIAL IV ONE; -TETRACAINE 0.5% OPHTH (PF) DROPS 4 ML BTL OP ONE; +TIMOLOL 0.5% OPHTH DROPS 5 ML BTL LEFT EYE ONE; +TOBRA-DEXAMET 0.3-0.1% OPHTH DROPS 2.5 ML BTL OPHTHALMIC PRN; -[UNRECOGNIZED DRUG - OTHER] LEFT EYE SCH; +fentaNYL (PF) 50 MCG/ML 2 ML AMP ONE
[2020-10-01 10:27] VITALS: RESP 16; TEMP 97.8
--- NOTE | 2020-10-01 14:19 | P.OP ---
Date of Procedure: 10/01/20 Preoperative Diagnosis: bullous keratopathy left eye Postoperative Diagnosis: same Procedure(s) Performed: DSAEK Implants: none Anesthesia: regional Surgeon: Ayad Gordillo Estimated Blood Loss (ml): 5 Pathology: none sent Condition: stable Disposition: same day Indications for Procedure: failed cornea w/ edema Operative Findings: no complications
[2020-10-01 15:03] VITALS: BP 176/73; PULSE 74
--- NOTE | 2020-10-01 15:23 | OP ---
OPERATIVE REPORT DATE OF SURGERY: 10/01/2020. PROCEDURE: Descemet's stripping endothelial keratoplasty of the left eye. PREOPERATIVE DIAGNOSIS: Bullous keratopathy. POSTOPERATIVE DIAGNOSIS: Bullous keratopathy. SURGEON: Dr. Ayad Gordillo. ANESTHESIA: A retrobulbar block. ESTIMATED BLOOD LOSS: 5 mL. SPECIMEN TAKEN: donor transport media as well as donor corneal tissue was sent for culture and sensitivity. NARRATIVE: After obtaining the appropriate consent, the patient was brought to the operating room. There he was placed under cardiac monitoring and was given a retrobulbar block consisting of 1% lidocaine without epinephrine, Marcaine, and 150 units of Wydase. Approximately 6 mL was injected into the retrobulbar space followed by placement of a [place] balloon for 10 minutes. After sufficient time to allow for the anesthesia to set, he was then prepped and draped in the usual sterile manner. He was approached from his left temporal side and the previously placed temporal suture was removed and 4 paracenteses were in each of the diagonal quadrants and outlining of the previous stripping was identified and marked with a gentian sean marker. A 5 mm length was marked on the temporal incision with a bear care caliper and the epithelium from the patient's cornea was removed in its entirety. The temporal incision was opened with a 2.8 mm keratome and enlarged to the full 5 mm width. Donor tissue was then brought to the back table and placed in a basin. The tissue was transported in a [place] endo glide insertion device. Using the special forceps for the descemet tissue, this was withdrawn from the Endo glide call centre supervisor device and placed on the patient's cornea Two 10-0 nylon Prolene double-armed with an STC needle was placed through the peripheral cornea and was set aside. Two such sutures were placed at the 10 and 2 o'clock position in the donor tissue. Then each of the needles was passed into the anterior chamber from the temporal incision and into the host cornea and drawn outside of the cornea at their respective 10 and 2 o'clock positions as well. The needles were removed and the cornea was gently folded into an [place] forceps, attempting to keep all the sutures untangled and the cornea was then placed into the anterior chamber. Slack in the 10-0 Prolene was gradually removed and the superior portion of the donor tissue was brought into contact with the host cornea. Once this was largely in place, a small air bubble was used to buoy the donor tissue into position. Care was taken to note the position of the capital Esmarch indicating the proper position of the stroma with respect to the patient's host cornea. The temporal incision was closed with three 10-0 nylon sutures and a large amount of air was then inserted into the patient's eye due to the previous vitrectomy. A large amount of air had to be inserted into the eye. A good portion of which appeared to prolapse into the posterior chamber. However, once the eye was brought to normal pressure for approximately 20 minutes at a pressure of 35 mm or so was achieved. The slack in the remaining 10-0 Prolene was removed after securing the sutures and then the eye was filled with balanced salt solution bringing the amount of air remaining at least in the anterior chamber to approximately 50%. The patient then received 2 drops of 0.5% timolol, 2 drops of moxifloxacin and then the eye was covered with a bandage contact lens. There was no patching performed on the eye. However, the eye was shielded with a shield in the usual manner. There were no complications from the procedure and he tolerated the procedure well, was returned to outpatient recovery in good condition. HARVEY / ANGELESN: [id number] /
== END | disposition home or self-care (01) ==
LOC: OR 09:40
PROVIDERS: ATTEND Ophthalmology
DX: H18.12 Bullous keratopathy, left eye (principal); T86.8412 Corneal transplant failure, left eye; H18.232 Secondary corneal edema, left eye; H53.2 Diplopia; H53.021 Refractive amblyopia, right eye; H52.03 Hypermetropia, bilateral; H52.223 Regular astigmatism, bilateral; H52.4 Presbyopia; K21.9 Gastro-esophageal reflux disease without esophagitis; Z98.41 Cataract extraction status, right eye; Z98.42 Cataract extraction status, left eye; Z96.1 Presence of intraocular lens; Z98.890 Other specified postprocedural states; Z87.19 Personal history of other diseases of the digestive system; Z79.899 Other long term (current) drug therapy; Z90.49 Acquired absence of other specified parts of digestive tract; Z83.518 Family history of other specified eye disorder; Z80.8 Family history of malignant neoplasm of other organs or systems; Z82.49 Family history of ischemic heart disease and other diseases of the circulatory system
CPT/HCPCS: 87070; 87205; 87075; 65756; V2785; J2250; J3470; J2001; J3010; J2704

== ENCOUNTER 2021-06-10 10:54 | Emergency (ER) | payer MEDICARE ==
[2021-06-10 11:37] VITALS: RESP 18; TEMP 97.9
--- NOTE | 2021-06-10 11:59 | ED ---
Fall HPI - General Chief Complaint: Fall Stated Complaint: fall, R shoulder injury Time Seen by Provider: 06/10/21 11:45 Source: patient, RN notes reviewed Mode of arrival: ambulatory Limitations: no limitations - History of Present Illness Initial Comments: This a 76-year-old male presents emergency Department with chief complaint of trip and fall. Patient states he was stepping down off a curb falling onto his right shoulder. Patient denies any head injury no loss consciousness no headache, neck or back pain. Patient only complains of right shoulder pain. Patient states that he has no hip pain he has pain with range of motion of his right shoulder and arm patient states she is left-hand dominant. No paresthesias no other complaints. - Related Data Home Medications Medication Instructions Recorded Confirmed Prednisolone Eye Gtts 1 drop LEFT EYE DIRECTED 09/29/20 10/01/20 Allergies Allergy/AdvReac Type Severity Reaction Status Date / Time venom-honey bee Allergy Swelling Verified 06/10/21 11:36 [bee venom (honey bee)] Review of Systems ROS Statement: Those systems with pertinent positive or pertinent negative responses have been documented in the HPI. ROS Other: All systems not noted in ROS Statement are negative. Past Medical History Past Medical History: Eye Disorder Additional Past Medical History / Comment(s): . History of Any Multi-Drug Resistant Organisms: None Reported Past Surgical History: Appendectomy, Cholecystectomy, Hernia Repair Additional Past Surgical History / Comment(s): 08/10/20 left eye bulbous keratopathy, hiral cataracts removed Past Anesthesia/Blood Transfusion Reactions: No Reported Reaction Past Psychological History: No Psychological Hx Reported Smoking Status: Never smoker Past Alcohol Use History: Occasional Past Drug Use History: None Reported - Past Family History Brother(s) Family Medical History: Cancer Additional Family Medical History / Comment(s): KIDNEY AND BRAIN CANCER General Exam Limitations: no limitations General appearance: alert, in no apparent distress Head exam: Present: atraumatic, normocephalic, normal inspection Neck exam: Present: normal inspection, full ROM. Absent: tenderness, meningismus, lymphadenopathy Respiratory exam: Present: normal lung sounds bilaterally. Absent: respiratory distress, wheezes, rales, rhonchi, stridor Cardiovascular Exam: Present: regular rate, normal rhythm, normal heart sounds. Absent: systolic murmur, diastolic murmur, rubs, gallop, clicks Extremities exam: Present: other (Right shoulder there is tenderness to the proximal humerus region no clavicular tenderness no obvious deformity no distal humeral tenderness neurovascular intact very limited range of motion secondary to pain) Back exam: Present: full ROM. Absent: tenderness, paraspinal tenderness, vertebral tenderness Neurological exam: Present: alert Skin exam: Present: warm, dry, intact, normal color. Absent: rash Course Vital Signs 06/10/21 11:33 Temperature 97.9 F Pulse Rate 81 Respiratory 18 Rate Blood Pressure 148/84 O2 Sat by Pulse 97 Oximetry Medical Decision Making - Medical Decision Making X-ray shows possibly of loose body but no definite fracture identified. Patient placed a sling will follow-up with orthopedics. Patient provided pain control. Disposition Clinical Impression: Fall, Contusion of right shoulder, Right shoulder strain Disposition: HOME SELF-CARE Condition: Stable Instructions (If sedation given, give patient instructions): Shoulder Sprain (ED), Shoulder Pain (ED) Additional Instructions: Please return to the Emergency Department if symptoms worsen or any other concerns. Is patient prescribed a controlled substance at d/c from ED?: No Referrals: None,Stated [Primary Care Provider] - 1-2 days Javier Grimaldo DO [Doctor of Osteopathic Medicine] - 1-2 days Time of Disposition: 12:58
--- NOTE | 2021-06-10 12:26 | XR ---
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 Bone mineralization is reduced, question bon e island within the region of the acromion, difficult to exclude a small loose body. There are overly ing artifacts. Alignment and joint spaces are maintained. Right lung apex as visualized are normal. IMPRESSION: No acute fracture or dislocation. Additional findings above.
[2021-06-10] MEDS ORDERED: ACET/COD 300 MG/30 MG STARTER PACK 6 TAB BTL PO STA (12:57)
[2021-06-10 13:14] VITALS: BP 136/78; PULSE 74
== END 2021-06-10 13:16 | disposition home or self-care (01) ==
LOC: EC 10:54
DX: S46.911A Strain of unspecified muscle, fascia and tendon at shoulder and upper arm level, right arm, initial encounter (principal); W01.0XXA Fall on same level from slipping, tripping and stumbling without subsequent striking against object, initial encounter
CPT/HCPCS: 99284